=== PATIENT | female | born 1995 | race Caucasian/White ===

== ENCOUNTER 2017-11-22 11:56 | Emergency (ER) | payer OTHER ==
[~2017-11-22] VITALS: Ht 175.3 cm; Wt 79.0 kg
[~2017-11-22 11:56] MED LIST: AMOX875 PO; DICL75 PO; ROBA750T3 PO; ZOFR4TAB3 SL
[2017-11-22 12:05] VITALS: BP 124/71; PULSE 107; RESP 16; TEMP 99.1; O2SAT 98
[2017-11-22] MEDS ORDERED: KETOROLAC TROMETHAMINE 60 MG/2 ML (IM) VIAL IM ONE (13:00)
[2017-11-22] MEDS ORDERED: DIAZEPAM 5 MG TAB PO ONE (13:00)
[2017-11-22] MEDS ORDERED: ONDANSETRON ODT 4 MG TAB PO ONE (13:30)
[2017-11-22] MEDS ORDERED: oxyCODONE/ACETAMINOPHEN 5 MG/325 MG TAB PO ONE (14:15)
[2017-11-22] MEDS ORDERED: ROBA750T PO (14:45)
[2017-11-22] MEDS ORDERED: IBUP1TAB7 PO (14:45)
--- NOTE | 2017-11-22 14:45 | PD ---
HPI Chief Complaint: Back/ Neck Pain or Injury Time Seen by Provider: 12:55 Travel History International Travel<30 days: No Contact w/Intl Traveler<30days: No Traveled to known affect area: No History of Present Illness HPI This is a 21-year-old female here with left upper neck and back pain since 4 days. She denies injury or trauma. She reports this is similar to prior back strains and muscle spasms although this is more severe. She denies fever or chills. No chest pain or shortness of breath. No cough. No paresthesias or weakness of the extremities. No history of IV drug abuse. Symptom severity is moderate. Aggravated by palpation of the back and twisting motion. Slightly relieved with rest and heat. PFSH Past Medical History Medical History: Denies Significant Hx Diminished Hearing: No Musculoskeletal: Yes (hx of buldging discs) Immunizations Current: Yes Tetanus Vaccination: Unknown Influenza Vaccination: No ?: Not LMP: CURRENTLY Ovarian Cysts: Yes Social History Alcohol Use: No Tobacco Use: No Substance Use: No Allergies-Medications (Allergen,Severity, Reaction): Coded Allergies: No Known Allergies (Unverified Adverse Reaction, Unknown, 11/22/17) Reported Meds & Prescriptions Reported Meds & Active Scripts Active Review of Systems Except as stated in HPI: all other systems reviewed are Neg General / Constitutional: No: Fever Physical Exam Narrative GENERAL: Alert and well-appearing 21-year-old female. No distress. Patient sitting erect in the stretcher. SKIN: Warm and dry. No rash HEAD: Normocephalic. EYES: No scleral icterus. No injection or drainage. NECK: Supple, trachea midline. No cervical midline tenderness. CARDIOVASCULAR: Regular rate and rhythm without murmurs, gallops, or rubs. RESPIRATORY: Breath sounds equal bilaterally. No accessory muscle use. GASTROINTESTINAL: Abdomen soft, non-tender, nondistended. MUSCULOSKELETAL: No cyanosis, or edema. Normal strength and sensation in upper and lower extremities. BACK:+ Acute Tenderness to palpation to the left trapezius muscle. No midline spine tenderness. Without obvious deformity. No CVA tenderness. Data Data Last Documented VS Vital Signs Date Time Temp Pulse Resp B/P (MAP) Pulse Ox O2 Delivery O2 Flow Rate FiO2 11/22/17 12:05 99.1 107 16 124/71 (88) 98 Orders Orders Ketorolac Inj (Toradol Inj) (11/22/17 13:00) Diazepam (Valium) (11/22/17 13:00) Ondansetron Odt (Zofran Odt) (11/22/17 13:30) Oxycodone-Acetamin 5-325 Mg (Percocet (11/22/17 14:15) MDM Medical Decision Making Medical Screen Exam Complete: Yes Emergency Medical Condition: Yes Differential Diagnosis Musculoskeletal muscle strain of the back, very unlikely compression fracture, very unlikely spinal abscess Narrative Course This is a 21-year-old female with nontraumatic upper back pain for 4 days. The pain is reproducible to palpation of the soft tissue of the left upper back. She has no spinal tenderness. Vital signs are stable. She is well-appearing. This appears to be musculoskeletal in nature. Patient was given Toradol 60 mg IM and Valium 5 mg by mouth. On reexam patient had very little relief. She was then given Percocet 5//25 by mouth which provided moderate symptom relief. She is stable and ready for discharge. Diagnosis Primary Impression: Upper back strain Qualified Codes: S29.012A - Strain of muscle and tendon of back wall of thorax , initial encounter Referrals: Primary Care Physician Additional Instructions: Ibuprofen 800 mg every 6 hours as needed for pain. Robaxin 3 times a day as needed for muscle spasm. Use ice and/or heat for comfort. Avoid heavy lifting or strenuous activity. Return if he developed new or worsening symptoms. Scripts Methocarbamol (Robaxin) 750 Mg Tab 750 MG PO TID for Muscle Spasm, #12 TAB 0 Refills Prov: Hilary Izaguirre 11/22/17 Ibuprofen (Ibuprofen) 800 Mg Tab 800 MG PO Q6HR Y for PAIN, #40 TAB 0 Refills Prov: Hilary Izaguirre 11/22/17 Disposition: 01 DISCHARGE HOME Condition: Stable Hilary Izaguirre Nov 22, 2017 14:45
[2017-11-26] MEDS ORDERED: PERC5TAB12 PO ×2 (09:05→10:05)
== END 2017-11-22 15:03 | disposition home or self-care (01) ==
LOC: PHEFT 11:56
DX: S29.012A Strain of muscle and tendon of back wall of thorax, initial encounter (principal); M54.2 Cervicalgia; Z87.39 Personal history of other diseases of the musculoskeletal system and connective tissue; X58.XXXA Exposure to other specified factors, initial encounter
CPT/HCPCS: 96372; 99284; J1885

== ENCOUNTER 2017-12-05 06:35 | Observation (INO) | payer OTHER ==
[~2017-12-05] VITALS: Ht 175.3 cm; Wt 80.6 kg
[~2017-12-05 06:35] MED LIST changes: -AMOX875 PO; -DICL75 PO; +IBUP1TAB7 PO; +PERC5TAB12 PO; +ROBA750T PO; -ROBA750T3 PO; -ZOFR4TAB3 SL
[2017-12-05] MEDS ORDERED: THROMBIN (TOPICAL) 5,000 UNIT VIAL ONE (07:09)
[2017-12-05] MEDS ORDERED: ceFAZolin 2 GM PREMIX 50 ML ONE (07:09)
[2017-12-05] MEDS ORDERED: GELFOAM SIZE 100 ONE (07:09)
[2017-12-05] MEDS ORDERED: GENTAMICIN SULFATE 80 MG/2 ML VIAL ONE (07:10)
[2017-12-05] MEDS ORDERED: CHLORHEXIDINE GLUCONATE 2 % 1 PACK (2 CLOTHS) TOPICAL PRN (07:15)
[2017-12-05] MEDS ORDERED: METOPROLOL TARTRATE 25 MG TAB PO PRN (07:15)
[2017-12-05] MEDS ORDERED: POVIDONE IODINE 5% (ANTISEPSIS KIT) 4 APPLICATIONS EACH NARE PRN (07:15)
[2017-12-05] MEDS ORDERED: LACTATED RINGER'S 1000 ML IV PRN (07:15)
[2017-12-05] MEDS ORDERED: SODIUM CHLORID 0.9% 500 ML IV PRN (07:15)
[2017-12-05] MEDS ORDERED: SODIUM CHLOR 0.9% 1000 ML INJ 1,000 ML IV SCH (07:15)
[2017-12-05] MEDS ORDERED: VANCOMYCIN 1 GM/200 ML PREMIX ON-CALL IV SCH (07:15)
[2017-12-05] MEDS ORDERED: PROPOFOL 500 MG/50 ML INJ 50 ML ONE (09:48)
[2017-12-05] MEDS ORDERED: diphenhydrAMINE HCL 50 MG/ML VIAL ONE (11:50)
--- NOTE | 2017-12-05 11:51 | PD.OP ---
Operative Report Date of Surgery: Dec 05, 2017 Preoperative Diagnosis: C5-6 disk herniation Postoperative Diagnosis: C5-6 disk herniation Procedure: C5-6 anterior cervical discectomy and arthroplasty using Mobi C Anesthesia: general Surgeon: Maurice Bazan Pig Iron Loader(s): Sil Tapia Operation and Findings: INDICATIONS FOR THE PROCEDURE ms Aldridge is a 21 year-old who presented with intractable neck pain and clinical evidence of C6 cervical radiculopathy. She was found to have a large disc herniation at C5-6, causing significant mass effect on the spinal cord and nerve root. She had cord compression and evidence of myelopathy. She failed nonsurgical conservative treatment. An anterior cervical discectomy and arthroplasty were indicated. The [id number] details of the surgical procedure, indications, alternatives, risks and potential complications were fully discussed with the patient. The patient fully understood. All her questions were answered. No guarantees were given. She voiced requesting the procedure and signed informed consents. She was offered the alternative of delaying the procedure and continuing with nonsurgical management. DETAILS OF THE SURGICAL PROCEDURE SURGICAL APPROACH A skin incision was made along the middle cervical crease with a #10 blade. The dissection was carried out through the platysma exposing the sternocleidomastoid muscle. The cervical spine was approached following the fascial layers of the neck, just medial to the anterior border of the sternocleidomastoid and carotid sheath by a combination of sharp and dull dissection. The omohyoid muscle was identified and carefully dissected laterally and the deep cervical fascia was carefully opened. The longus colli muscles were retracted to each side of the midline. A marker was placed at the C5-6 disc space and a cross-table lateral x-ray performed with a C-arm. An AP xray was then obtained as well, and the midline of the disk space was defined. SURGICAL DECOMPRESSION In order to decompress the anterior surface of the spinal cord it was necessary to perform a microsurgical resection of the disk. At this point in the procedure the operating microscope was draped in the usual sterile fashion and brought to the field. The rest of the surgical procedure was performed using microdissection technique with the exception of the closure. Under the operative microscopic a self-retaining retractor was placed underneath the longus colli muscle. The annulus at C5-6 was incised with a #15 blade and microdiscectomy was then carefully carried out using angled curets and pituitary forceps. The patient had a large disk extrusion which was producing mass affect on the exiting nerve root. This was carefully dissected with a nerve hock and resected with a think foot plate 2 mm Kerrison under high magnification. The posterior longitudinal ligament was then elevated with an angled curet and incised with a 15 bladed knife. A careful resection of the posterior longitudinal ligament was carried out using a thin footplate 2 mm Kerrison. Extruded disk fragments causing mechanical compression were carefully dissected. The decompression was then carried out laterally, and a bilateral foraminotomy was performed with a 2 mm thin foot Kerrison. The epidural space was the systematically assessed with a nerve hook in search for disk fragments of scar tissue. An excellent decompression was achieved in both, the dural sac and bilateral exiting nerve roots. The incision was then irrigated with a large amount of antibiotic solution INTERBODY ARTHROPLASTY In order to avoid collapse of the disk space which would result in bilateral foraminal stenosis, and in order to maintain disk space height and function minimally development of adjacent level degeneration, it was necessary to place an interbody device. At this point of the procedure, gentle distraction was applied. The size of the interbody device was then assessed using a trial, and a cross table xray was done for confirmation of appropriate size and position of the device. Then the disk space was irrigated with antibiotic solution, and a 15mm by 6mm Mobi C artificial disk was carefully impacted into the disc space C5-6. An excellent position of the device was achieved. This was confirmed anatomically by feeling the space posterior to the implant and distance to the anterior surface of the dural sac. Radiological confirmation of the position was performed with a cross table AP and lateral X-ray views, performed with the C-arm. COMPLETION OF THE SURGICAL PROCEDURE Once that each interbody device was in an appropriate position, the distraction was discontinued. The position of the device as well as alignment of the spine were assessed anatomically by direct visualization, and radiologically by performing an AP and lateral X-ray of the cervical spine with the C-arm. The position of the implant was excellent. The incision was irrigated with several liters of antibiotic solution. Hemostasis was achieved with a bipolar. A 7 mm Niko-Heard drain was left in the prevertebral space and externalized through a separate stab incision. The incision was then closed in layers. 3-0 Vicryl with interrupted sutures was used to close the platysma and subcutaneous tissue. The skin was closed with 4- 0 running subcuticular Vicryl and Dermabond was applied to the skin. The drain was secured with a 3-0 nylon. At the end of the procedure the sponge, needle and instrument counts were all correct. The estimated blood loss was less than 50 cc. No blood transfusion was given. No intraoperative complications occurred. The patient received prophylactic antibiotics. The patient was then extubated and transferred to the recovery room in stable condition. Maurice Bazan MD Dec 05, 2017 11:51
[2017-12-05] MEDS ORDERED: DO NOT ADM ANY ANTICOAGULANT DRUGS PRN (11:57)
[2017-12-05] MEDS ORDERED: RESP: ALBUTEROL 2.5 MG/3 ML NEB (PRN) INH (12:00)
[2017-12-05] MEDS ORDERED: ONDANSETRON HCL 4 MG/2 ML VIAL IV PRN (12:00)
[2017-12-05] MEDS ORDERED: MORPHINE SULFATE 4 MG/ML INJ IV PUSH PRN (12:00)
[2017-12-05] MEDS ORDERED: GLYCOPYRROLATE 1 MG/5 ML SYRINGE IV PUSH ONE (12:00)
[2017-12-05] MEDS ORDERED: ACETAMINOPHEN 325 MG TAB PO PRN (12:00)
[2017-12-05] MEDS ORDERED: IBUPROFEN 800 MG TAB PO PRN (12:00)
[2017-12-05] MEDS ORDERED: MAGNESIUM HYDROXIDE SUSP 30 ML CUP PO PRN (12:00)
[2017-12-05] MEDS ORDERED: KETOROLAC TROMETHAMINE 30 MG/ML (IVP) VIAL IV PUSH ONE (12:00)
[2017-12-05] MEDS ORDERED: DEXTROSE 50% IN WATER 50 ML VIAL(D50) IV PUSH PRN (12:00)
[2017-12-05] MEDS ORDERED: cloNIDine HCL 0.1 MG TAB PO/NG PRN (12:00)
[2017-12-05] MEDS ORDERED: ACETAMINOPHEN/HYDROcodone 325 MG/10 MG TAB PO PRN ×2 (12:00)
[2017-12-05] MEDS ORDERED: PROPOFOL 200 MG/20 ML AMP IV ONE (12:00)
[2017-12-05] MEDS ORDERED: oxyCODONE/ACETAMINOPHEN 5 MG/325 MG TAB PO PRN (12:00)
[2017-12-05] MEDS ORDERED: LACTATED RINGER'S 1000 ML INJ 1,000 ML IV ONE (12:00)
[2017-12-05] MEDS ORDERED: MENTHOL LOZENGE BUCCAL PRN (12:00)
[2017-12-05] MEDS ORDERED: DEXAMETHASONE SOD PHOS 4 MG/ML VIAL IV ONE (12:00)
[2017-12-05] MEDS ORDERED: BISACODYL 10 MG SUPP RECTAL PRN (12:00)
[2017-12-05] MEDS ORDERED: GLUCAGON 1 MG/ML VIAL OTHER PRN (12:00)
[2017-12-05] MEDS ORDERED: ONDANSETRON HCL 4 MG/2 ML VIAL IV ONE (12:00)
[2017-12-05] MEDS ORDERED: NEOSTIGMINE 5 MG/5 ML SYRINGE IV PUSH ONE (12:00)
[2017-12-05] MEDS ORDERED: ROCURONIUM INJ 50 MG/5 ML SYRINGE IV PUSH ONE (12:00)
[2017-12-05] MEDS ORDERED: PHENYLEPH/NS 1000 MCG/10 ML SYR IV ONE (12:00)
[2017-12-05] MEDS: SODIUM CHLOR 0.9% 1000 ML INJ 1,000 ML IV SCH ×2 (12:05→22:15)
[2017-12-05] MEDS ORDERED: *ONDANSETRON 4 MG VIAL PERIprocedural Use ONLY ONE (12:13)
[2017-12-05] MEDS ORDERED: MIDAZOLAM HCL 2 MG/2 ML VIAL ONE (12:16)
[2017-12-05] MEDS ORDERED: *morphine SULFATE 10 MG/ML PERIprocedure ONLY ONE ×2 (12:21→14:24)
[2017-12-05] MEDS ORDERED: ACETAMINOPHEN 1000 MG/100 ML 100 ML IV ONE (12:56)
[2017-12-05] MEDS: DOCUSATE SODIUM 100 MG CAP PO SCH ×2 (13:00→21:08)
--- NOTE | 2017-12-05 13:39 | RADRPT ---
EXAM DATE/TIME: 12/05/2017 09:50 [facility] COMPARISON: No previous studies available for comparison. INDICATIONS : Herniated disk, stenosis. MEDICAL HISTORY : None. SURGICAL HISTORY : None. ENCOUNTER: Initial ACUITY: 1 day PAIN SCORE: Non-responsive. LOCATION: Cervical spine FINDINGS: Artificial disc is present at C5-C6. Alignment is anatomic. CONCLUSION: Alignment. Hernesto Dallas MD FACR on December 05, 2017 at 13:35 Board Certified Radiologist. This report was verified electronically.
[2017-12-05] MEDS: DEXAMETHASONE SOD PHOS 4 MG/ML VIAL IV PUSH SCH ×2 (14:00→21:08)
[2017-12-05 15:43] VITALS: BP 110/58; PULSE 99; RESP 17; TEMP 96.7; O2SAT 97
[2017-12-05] MEDS ORDERED: oxyCODONE/ACETAMINOPHEN 7.5 MG/325 MG TAB PO PRN (16:30)
[2017-12-05] MEDS: MORPHINE SULFATE 4 MG/ML INJ IV PUSH PRN ×2 (19:00→22:47)
[2017-12-05 20:00] VITALS: BP 124/69; PULSE 80; RESP 15; TEMP 97.7; O2SAT 99
[2017-12-05] MEDS: CYCLOBENZAPRINE HCL 10 MG TAB PO PRN (20:30)
[2017-12-05] MEDS: oxyCODONE/ACETAMINOPHEN 10 MG/325 MG TAB PO PRN (20:30)
[2017-12-05] MEDS ORDERED: CHLORHEXIDINE GLUCONATE 4% SOLN 120 ML BTL TOP SCH (21:00)
[2017-12-06] VITALS: BP 118/65; PULSE 70; RESP 15; TEMP 96.9; O2SAT 97
[2017-12-06] MEDS: oxyCODONE/ACETAMINOPHEN 10 MG/325 MG TAB PO PRN ×3 (00:50→14:07)
[2017-12-06] MEDS: MORPHINE SULFATE 4 MG/ML INJ IV PUSH PRN (02:00)
[2017-12-06] MEDS: DEXAMETHASONE SOD PHOS 4 MG/ML VIAL IV PUSH SCH ×3 (03:04→14:07)
[2017-12-06 04:00] VITALS: BP 106/52; PULSE 74; RESP 15; TEMP 97.2; O2SAT 98
[2017-12-06 08:00] VITALS: BP 112/62; PULSE 88; RESP 16; TEMP 97.3; O2SAT 98
[2017-12-06] MEDS ORDERED: PANTOPRAZOLE SOD 40 MG DELAYED RELEASE TAB PO SCH (09:00)
[2017-12-06] MEDS: SODIUM CHLOR 0.9% 1000 ML INJ 1,000 ML IV SCH ×2 (09:00→14:11)
[2017-12-06] MEDS ORDERED: PANTOPRAZOLE SODIUM 40 MG VIAL IVP PRN (09:00)
[2017-12-06] MEDS ORDERED: PERC5TAB12 PO (09:24)
[2017-12-06] MEDS ORDERED: CYCL10TA PO (09:25)
[2017-12-06] MEDS ORDERED: KETOROLAC TROMETHAMINE 60 MG/2 ML (IM) VIAL IM ONE (09:30)
[2017-12-06] MEDS ORDERED: CYCLOBENZAPRINE HCL 10 MG TAB PO PRN (09:30)
[2017-12-06] MEDS: CYCLOBENZAPRINE HCL 10 MG TAB PO PRN (09:32)
[2017-12-06] MEDS: DOCUSATE SODIUM 100 MG CAP PO SCH (09:32)
--- NOTE | 2017-12-06 11:13 | HHI.DS ---
Discharge Summary Admission Date Dec 05, 2017 at 11:49 Discharge Date: Dec 06, 2017 Admitting Diagnosis s/p ACD with mobi C placement (1) S/P cervical discectomy ICD Code: Z98.890 - Other specified postprocedural states Brief History Ms Aldridge is a 21 year-old who presented with intractable neck pain and clinical evidence of C6 cervical radiculopathy. She was found to have a large disc herniation at C5-6, causing significant mass effect on the spinal cord and nerve root. She had cord compression and evidence of myelopathy Significant Findings Laboratory Tests Test 12/05/17 07:50 Imaging Last Impressions Cervical Spine X-Ray 12/05/17 0000 Signed Impressions: Service Date/Time: Tuesday, December 05, 2017 09:50 - CONCLUSION: Alignment. Hernesto Dallas MD FACR PE at Discharge The patient is alert, awake and oriented to time, place and person. Speech is fluent. Cranial nerve examination: pupils to be equal, round and reactive to light. Extra-ocular movements are intact. Facial motor are normal and symmetrical. Neck is immobilized by Gary J collar Wound with clean, dry Optifoam dressing Motor: moving all major muscle groups of upper and lower extremities Gait: she is ambulating around the room Resp: clear, no wheezing Hospital Course Ms. Aldridge underwent a C5-6 anterior cervical discectomy and arthroplasty using Mobi C on Dec 05, 2017 for C5-6 disk herniation. Her surgery went well without complications. She is discharged home in stable conditions. Pt Condition on Discharge: Stable Discharge Disposition: Discharge Home Discharge Instructions DIET: Follow Instructions for: Soft Diet ADDITIONAL Diet Instructions: advance as tolerated ACTIVITIES You can perform: Weight Bearing As Suze ADDITIONAL Activity Instructio: Avoid strenuous activities, heavy lifting over 5 lbs, overhead activities, repetitive bending, twisting, pushing, pulling or any activities which might result in stress over the spine. Avoid situation that will put at risk for falls. Use assistive device as needed for walking. Wear cervical collar at all times, may remove only with meals. New Medications: Cyclobenzaprine (Flexeril) 10 Mg Tab 10 MG PO TID for Muscle Spasm, #90 TAB 0 Refills Continued Medications: Ibuprofen (Ibuprofen) 800 Mg Tab 800 MG PO Q6HR PRN for PAIN, #40 TAB 0 Refills Oxycodone-Acetaminophen (Percocet) 5-325 mg Tab 2 TAB PO Q8HR PRN for PAIN, #60 TAB 0 Refills (This prescription has been renewed) Viola Ramirez Dec 06, 2017 11:13
--- NOTE | 2017-12-06 11:13 | HHI.DCPOC ---
Discharge Care Plan Diagnosis: (1) S/P cervical discectomy Goals to Promote Your Health * To prevent worsening of your condition and complications * To maintain your health at the optimal level Directions to Meet Your Goals Take your medications as prescribed Follow your dietary instruction Follow activity as directed Keep your appointments as scheduled Take your immunizations and boosters as scheduled If your symptoms worsen call your PCP, if no PCP go to Urgent Care Center or Emergency Room Smoking is Dangerous to Your Health. Avoid second hand smoke Call the 24-hour hour crisis hotline for domestic abuse at Viola Ramirez Dec 06, 2017 11:13
== END 2017-12-06 14:48 | disposition home or self-care (01) ==
LOC: HSDC 06:35 → HSDI 11:49 → N06A 15:19
PROVIDERS: ADMIT Neurological Surgery; ATTEND Neurological Surgery
DX: M50.122 Cervical disc disorder at C5-C6 level with radiculopathy (principal); M50.022 Cervical disc disorder at C5-C6 level with myelopathy; J44.9 Chronic obstructive pulmonary disease, unspecified
CPT/HCPCS: 00600; 20936; 22551; 22845; 22856; 72040; 76000; 87641; 94150; 96372; 96374; 96375; 96376; 97162; C1889; G0378; G8987; G8988; J0131; J0690; J1100; J1200; J1580; J1885; J2250; J2270; J2370; J2405; J2710; J3010; J3370; J7030; J7120; L0150; L0172

== ENCOUNTER 2017-12-18 04:39 | Inpatient (IN) | payer OTHER ==
[2017-12-18] VITALS (10 sets, daily range): BP systolic 99–130; BP diastolic 56–84; PULSE 78–129; RESP 7–20; TEMP 96.4–101.7; O2SAT 97–100
[~2017-12-18] VITALS: Ht 175.3 cm; Wt 84.0 kg
[~2017-12-18 04:39] MED LIST changes: +CYCL10TA PO; -ROBA750T PO
[2017-12-18] MEDS ORDERED: SODIUM CHLOR 0.9% 1000 ML INJ 1,000 ML IV SCH (05:01)
--- NOTE | 2017-12-18 05:04 | PD ---
HPI Chief Complaint: Abdominal Pain Time Seen by Provider: 05:01 Travel History International Travel<30 days: No Contact w/Intl Traveler<30days: No Traveled to known affect area: No History of Present Illness HPI 22-year-old female presents to the emergency department via private transportation for complaint of severe right flank pain with shortness of breath. Patient states that 12/05/17 she underwent elective discectomy and has done well postoperatively. Patient takes no prescription medications. Patient does not smoke cigarettes. Patient states last evening after eating dinner she started noticing some periumbilical pain which moved to her right upper quadrant and now causes her severe right flank pain with shortness of breath. No report of chest pain or pleuritic chest pain. No report of hemoptysis. Patient is not taking any blood thinning agents. Patient rates pain as severe. PFSH Past Medical History Narrative Medical ovarian cysts; cervical discectomy; no tobacco use; nursing notes reviewed Arthritis: No Asthma: No Anxiety: No Depression: No Cancer: No Cardiovascular Problems: No Chemotherapy: No COPD: Yes Diabetes: No Diminished Hearing: No Endocrine: No Genitourinary: No Hepatitis: No Hiatal Hernia: No Immune Disorder: No Musculoskeletal: Yes (hx of buldging discs) Neurologic: Yes (L ARM NUMBNESS) Psychiatric: No Reproductive: No Respiratory: No Immunizations Current: Yes Radiation Therapy: No Sickle Cell Disease: No Thyroid Disease: No Ovarian Cysts: Yes Past Surgical History AICD: No Arteriovenous Shunt: No Gynecologic Surgery: Yes (OVARIAN CYSTS REMOVED) Insulin Pump: No Joint Replacement: No Pacemaker: No Social History Alcohol Use: No Tobacco Use: No Substance Use: No Allergies-Medications (Allergen,Severity, Reaction): Coded Allergies: No Known Allergies (Unverified Adverse Reaction, Unknown, 12/18/17) Reported Meds & Prescriptions Reported Meds & Active Scripts Active Flexeril (Cyclobenzaprine HCl) 10 Mg Tab 10 Mg PO TID Percocet (Oxycodone-Acetaminophen) 5-325 mg Tab 2 Tab PO Q8HR PRN Ibuprofen 800 Mg Tab 800 Mg PO Q6HR PRN Review of Systems Except as stated in HPI: all other systems reviewed are Neg General / Constitutional: Positive: Fever, No: Chills HENT: No: Sore Throat, Congestion Cardiovascular: No: Chest Pain or Discomfort Respiratory: Positive: Shortness of Breath, No: Cough, Pleuritic Pain Gastrointestinal: Positive: Vomiting, Abdominal Pain, No: Nausea, Diarrhea Genitourinary: Positive: Flank Pain, No: Dysuria, Vaginal Bleeding Musculoskeletal: No: Myalgias, Arthralgias Skin: No Rash Neurologic: No: Weakness Psychiatric: No: Anxiety Hematologic/Lymphatic: No: Lymph Node Enlargement Physical Exam Narrative GENERAL: Well-developed well-nourished female in no acute distress or respiratory distress in obvious discomfort SKIN: Warm and dry. HEAD: Normocephalic. EYES: No scleral icterus. No injection or drainage. NECK: Supple, trachea midline. No JVD or lymphadenopathy. CARDIOVASCULAR: Increased Regular rate and rhythm without murmurs, gallops, or rubs. RESPIRATORY: Breath sounds equal bilaterally. No accessory muscle use. GASTROINTESTINAL: Abdomen soft, mild epigastric and right upper quadrant tenderness to palpation without guarding or rebound, nondistended. MUSCULOSKELETAL: No cyanosis, or edema. BACK: Nontender without obvious deformity. Marked right CVA tenderness. Data Data Last Documented VS Vital Signs Date Time Temp Pulse Resp B/P (MAP) Pulse Ox O2 Delivery O2 Flow Rate FiO2 12/18/17 07:01 20 12/18/17 07:00 98 Room Air 12/18/17 06:59 98.4 97 Orders Orders Complete Blood Count With Diff (12/18/17 05:01) Comprehensive Metabolic Panel (12/18/17 05:01) Lipase (12/18/17 05:01) Prothrombin Time / Inr (Pt) (12/18/17 05:01) Act Partial Throm Time (Ptt) (12/18/17 05:01) Urinalysis - C+S If Indicated (12/18/17 05:01) Iv Access Insert/Monitor (12/18/17 05:01) Ecg Monitoring (12/18/17 05:01) Oximetry (12/18/17 05:01) Ondansetron Inj (Zofran Inj) (12/18/17 05:15) Sodium Chlor 0.9% 1000 Ml Inj (Ns 1000 M (12/18/17 05:01) Sodium Chloride 0.9% Flush (Ns Flush) (12/18/17 05:15) Chest, Single Ap (12/18/17 05:01) Morphine Inj (Morphine Inj) (12/18/17 05:15) Ed Urine Pregnancytest Poc (12/18/17 05:02) Blood Culture (12/18/17 05:04) Lactic Acid (12/18/17 05:04) Morphine Inj (Morphine Inj) (12/18/17 05:45) Acetaminophen (Tylenol) (12/18/17 05:45) Ct Pulmonary Angiogram (12/18/17 ) Ct Abd/Pel W Iv Contrast(Rout) (12/18/17 ) Hydromorphone Pf Inj (Dilaudid Pf Inj) (12/18/17 06:00) Urine Culture (12/18/17 05:30) Piperacil-Tazo 4.5 Gm Premix (Zosyn 4.5 (12/18/17 06:30) Us Abdomen Gallbladder (12/18/17 ) Labs Laboratory Tests Test 12/18/17 05:10 12/18/17 05:30 White Blood Count 11.0 TH/MM3 Red Blood Count 4.49 MIL/MM3 Hemoglobin 13.5 GM/DL Hematocrit 39.2 % Mean Corpuscular Volume 87.2 FL Mean Corpuscular Hemoglobin 30.0 PG Mean Corpuscular Hemoglobin Concent 34.4 % Red Cell Distribution Width 12.0 % Platelet Count 162 TH/MM3 Mean Platelet Volume 8.9 FL Neutrophils (%) (Auto) 83.6 % Lymphocytes (%) (Auto) 7.6 % Monocytes (%) (Auto) 8.3 % Eosinophils (%) (Auto) 0.2 % Basophils (%) (Auto) 0.3 % Neutrophils # (Auto) 9.3 TH/MM3 Lymphocytes # (Auto) 0.8 TH/MM3 Monocytes # (Auto) 0.9 TH/MM3 Eosinophils # (Auto) 0.0 TH/MM3 Basophils # (Auto) 0.0 TH/MM3 CBC Comment DIFF FINAL Differential Comment Prothrombin Time 10.5 SEC Prothromb Time International Ratio 1.0 RATIO Activated Partial Thromboplast Time 25.9 SEC Blood Urea Nitrogen 10 MG/DL Creatinine 0.72 MG/DL Random Glucose 107 MG/DL Total Protein 8.5 GM/DL Albumin 4.2 GM/DL Calcium Level 9.0 MG/DL Alkaline Phosphatase 109 U/L Aspartate Amino Transf (AST/SGOT) 16 U/L Alanine Aminotransferase (ALT/SGPT) 59 U/L Total Bilirubin 1.3 MG/DL Sodium Level 137 MEQ/L Potassium Level 3.5 MEQ/L Chloride Level 104 MEQ/L Carbon Dioxide Level 26.0 MEQ/L Anion Gap 7 MEQ/L Estimat Glomerular Filtration Rate 101 ML/MIN Lactic Acid Level 0.9 mmol/L Lipase 142 U/L Urine Color YELLOW Urine Turbidity MOD Urine pH 6.0 Urine Specific Protem 1.016 Urine Protein 30 mg/dL Urine Glucose (UA) NEG mg/dL Urine Ketones NEG mg/dL Urine Occult Blood LARGE Urine Nitrite POS Urine Bilirubin NEG Urine Leukocyte Esterase SMALL Urine RBC 15-19 /hpf Urine WBC 25-49 /hpf Urine WBC Clumps OCC Urine Squamous Epithelial Cells 0-5 /hpf Urine Bacteria OCC /hpf Urine Mucus OCC /lpf Microscopic Urinalysis Comment CULTURE INDICATED MDM Medical Decision Making Medical Screen Exam Complete: Yes Emergency Medical Condition: Yes Medical Record Reviewed: Yes Interpretation(s) poc hcg: negative ua: Positive nitrite positive white blood cells positive, white blood cells positive bacteria; culture indicated Last Impressions Chest X-Ray 12/18/17 0501 Signed Impressions: Service Date/Time: Monday, December 18, 2017 05:08 - CONCLUSION: No acute disease. Monroe Mckeon MD CBC & BMP Diagram 12/18/17 05:10 Total Protein 8.5 H, Albumin 4.2, Calcium Level 9.0, Alkaline Phosphatase 109, Aspartate Amino Transf (AST/SGOT) 16, Alanine Aminotransferase (ALT/SGPT) 59 H, Total Bilirubin 1.3 H Vital Signs Date Time Temp Pulse Resp B/P (MAP) Pulse Ox O2 Delivery O2 Flow Rate FiO2 12/18/17 05:40 18 12/18/17 05:13 100.5 128 20 125/83 (97) 97 12/18/17 05:13 20 12/18/17 04:46 99.4 129 14 130/84 (99) 97 Differential Diagnosis Cholecystitis, nephrolithiasis, PE, pneumonia Narrative Course IV access obtained; patient placed on ekg monitor tech with continuous pulse oximetry; specimens conductance of resulting; patient administered 1 L normal saline along with Zofran 4 mg IV and morphine sulfate 2 mg IV; CT study ordered Patient continues to complain of severe right-sided flank pain therefore additional morphine 4 mg administered IV patient states pain decreased from 910/ 10-8/10 patient given additional IV fluids total white cell count is within normal range with left shift Patient continues complain of pain Dilaudid 0.[address] pulmonary angiogram and CT abdomen and pelvis imaging studies ordered Urinalysis identified to have nitrites white blood cells clumped white blood cells and bacteria; culture indicated CT abdomen and pelvis reveals no acute intra-abdominal pelvic process 2.2 x 3 cm left ovarian cyst gallbladder is read as unremarkable however patient is reexamined and markedly tender right upper quadrant and right flank therefore ultrasound of the gallbladder will be ordered and ultrasound will be signed out to oncoming physician Dr. Scott for patient disposition patient is already received Zosyn 4.5 g IV piggyback regarding UTI/possible pyelonephritis. Mala Alejandro MD Dec 18, 2017 05:04
[2017-12-18] MEDS: SODIUM CHLORIDE 0.9% FLUSH 10 ML FLUSH IV FLUSH PRN (05:12)
[2017-12-18] MEDS ORDERED: ONDANSETRON HCL 4 MG/2 ML VIAL IVP ONE (05:15)
[2017-12-18] MEDS ORDERED: MORPHINE SULFATE 2 MG/ML INJ IV PUSH ONE ×2 (05:15→05:45)
--- NOTE | 2017-12-18 05:23 | RADRPT ---
EXAM DATE/TIME: 12/18/2017 05:08 [facility] COMPARISON: No previous studies available for comparison. INDICATIONS : Short of breath. MEDICAL HISTORY : None. SURGICAL HISTORY : Cervical spine. ENCOUNTER: Initial ACUITY: 2 days PAIN SCORE: 3/10 LOCATION: Bilateral lower chest FINDINGS: A single view of the chest demonstrates the lungs to be symmetrically aerated without evidence of mas s, infiltrate or effusion. The cardiomediastinal contours are unremarkable. Osseous structures are intact. CONCLUSION: No acute disease. Monroe Mckeon MD on December 18, 2017 at 5:21 Board Certified Radiologist. This report was verified electronically.
[2017-12-18 05:32] LABS: AUTOMATED NEUTROPHIL # 9.3 TH/MM3 (1.8-7.7); BASOPHIL % 0.3 % (0.0-2.0); EOSINOPHIL % 0.2 % (0.0-4.0); HEMATOCRIT 39.2 % (35.0-46.0); HEMOGLOBIN 13.5 GM/DL (11.6-15.3); LYMPH % 7.6 % (9.0-44.0); LYMPHOCYTE # 0.8 TH/MM3 (1.0-4.8); MEAN CELL VOLUME 87.2 FL (80.0-100.0); MEAN CORPUSCULAR HGB CONC 34.4 % (32.0-36.0); MEAN PLATELET VOLUME 8.9 FL (7.0-11.0); MONO % 8.3 % (0.0-8.0); MONOCYTE # 0.9 TH/MM3 (0-0.9); NEUT % 83.6 % (16.0-70.0); PLATELET COUNT 162 TH/MM3 (150-450); RED BLOOD COUNT 4.49 MIL/MM3 (4.00-5.30)
[2017-12-18 05:40] LABS: CHLORIDE 104 MEQ/L (98-107); SODIUM (NA) 137 MEQ/L (136-145)
[2017-12-18 05:41] LABS: BILIRUBIN, URINE NEG (NEG); BLOOD, URINE LARGE (NEG); GLUCOSE,URINE NEG (NEG); KETONE, URINE NEG (NEG); NITRITE,URINE POS (NEG); URINE LEUKOCYTE ESTERASE SMALL (NEG)
[2017-12-18 05:44] LABS: ALBUMIN 4.2 GM/DL (3.4-5.0); BLOOD UREA NITROGEN 10 MG/DL (7-18); GLUCOSE,RANDOM 107 MG/DL (74-106)
[2017-12-18] MEDS ORDERED: ACETAMINOPHEN 325 MG TAB PO ONE (05:45)
[2017-12-18 05:47] LABS: ALT (GPT) 59 U/L (10-53); AST (GOT) 16 U/L (15-37); CREATININE 0.72 MG/DL (0.50-1.00); GLOMERULAR FILTRATION RATE 101 ML/MIN (>89)
[2017-12-18 05:48] LABS: TOTAL BILIRUBIN ADULT 1.3 MG/DL (0.2-1.0); TOTAL PROTEIN 8.5 GM/DL (6.4-8.2)
[2017-12-18 05:50] LABS: ALKALINE PHOSPHATASE 109 U/L (45-117)
[2017-12-18] MEDS ORDERED: HYDROmorphone HCL PF 2 MG/ML VIAL IV PUSH ONE ×2 (06:00→08:00)
[2017-12-18 06:10] LABS: URINE COLOR YELLOW (YELLW/STRAW)
[2017-12-18 06:11] LABS: MUCUS URINE OCC /lpf (OCC); WHITE BLOOD CELL CLUMPS OCC
[2017-12-18 06:12] LABS: BACTERIA, URINE OCC /hpf; RBC, URINE 15-19 /hpf (0-3); SQUAMOUS EPITHELIAL CELL URINE 0-5 /hpf (0-5)
[2017-12-18 06:20] LABS: PROTHROMBIN TIME - PATIENT 10.5 SEC (9.8-11.6)
[2017-12-18] MEDS ORDERED: PIPERACIL-TAZO 4.5 GM PREMIX 100 ML IV ONE (06:30)
[2017-12-18] MEDS ORDERED: IOHEXOL 350 MG/ML 10 ML VIAL (for RAD DIAG) IVCONTRAST ONE (06:35)
--- NOTE | 2017-12-18 06:54 | RADRPT ---
EXAM DATE/TIME: 12/18/2017 06:14 [facility] COMPARISON: CHEST SINGLE AP, December 18, 2017, 5:08. INDICATIONS : Evaluate for embolism. Chest pain. IV CONTRAST: 100 cc Omnipaque 350 (iohexol) IV ; Cumulative dose for multiple exams. RADIATION DOSE: 11.00 CTDIvol (mGy) MEDICAL HISTORY : Chronic obstructive pulmonary disease. SURGICAL HISTORY : Discectomy, cervical. ENCOUNTER: Initial ACUITY: 1 day PAIN SCALE: 9/10 LOCATION: Bilateral chest TECHNIQUE: Volumetric scanning of the chest was performed using a pulmonary embolism protocol MIP images were re constructed. Using automated exposure control and adjustment of the mA and/or kV according to patien t size, radiation dose was kept as low as reasonably achievable to obtain optimal diagnostic quality images. DICOM format image data is available electronically for review and comparison. Follow-up recommendations for detected pulmonary nodules are based at a minimum on nodule size and pa tient risk factors according to Fleischner Society Guidelines. FINDINGS: PULMONARY ARTERIES: No filling defects are seen in the pulmonary arteries through the segmental level. LUNGS: There is no consolidation or pneumothorax . No concerning pulmonary nodule is visualized. PLEURAE: There is no pleural thickening or pleural effusion. MEDIASTINUM: There is good visualization of the great vessels of the middle mediastinum. No evidence of mediastin al or hilar adenopathy/mass. MUSCULOSKELETAL: Within normal limits for patient age. MISCELLANEOUS: The visualized upper abdominal organs demonstrate no acute abnormality. CONCLUSION: Negative exam with no evidence of pulmonary embolism. Monroe Mckeon MD on December 18, 2017 at 6:52 Board Certified Radiologist. This report was verified electronically.
--- NOTE | 2017-12-18 06:56 | RADRPT ---
EXAM DATE/TIME: 12/18/2017 06:14 [facility] COMPARISON: No previous studies available for comparison. INDICATIONS : Right upper quadrant pain. IV CONTRAST: 100 cc Omnipaque 350 (iohexol) IV ; Cumulative dose for multiple exams. ORAL CONTRAST: No oral contrast ingested. RADIATION DOSE: 12.72 CTDIvol (mGy) MEDICAL HISTORY : Chronic obstructive pulmonary disease. SURGICAL HISTORY : Fusion, cervical. ENCOUNTER: Initial ACUITY: 1 day PAIN SCALE: 9/10 LOCATION: Right upper quadrant TECHNIQUE: Volumetric scanning of the abdomen and pelvis was performed. Using automated exposure control and ad justment of the mA and/or kV according to patient size, radiation dose was kept as low as reasonably achievable to obtain optimal diagnostic quality images. DICOM format image data is available electro nically for review and comparison. FINDINGS: LOWER LUNGS: The visualized lower lungs are clear. LIVER: Homogeneous density without lesion. There is no dilation of the biliary tree. No calcified gallston es. SPLEEN: Normal size without lesion. PANCREAS: Within normal limits. KIDNEYS: Normal in size and shape. There is no mass, stone or hydronephrosis. ADRENAL GLANDS: Within normal limits. VASCULAR: There is no aortic aneurysm. BOWEL/MESENTERY: The stomach, small bowel, and colon demonstrate no acute abnormality. There is no free intraperitone al air or fluid. ABDOMINAL WALL: Within normal limits. RETROPERITONEUM: There is no lymphadenopathy. BLADDER: No wall thickening or mass. REPRODUCTIVE: There is a 3 x 2.2 cm left ovarian cyst. Uterus and adnexa are otherwise unremarkable with small amou nt of free fluid in the cul-de-sac. INGUINAL: There is no lymphadenopathy or hernia. MUSCULOSKELETAL: Within normal limits for patient age. CONCLUSION: 1. Unremarkable gallbladder. 2. Moderate-sized left ovarian cyst. 3. Bowel gas pattern is within normal limits. Monroe Mckeon MD on December 18, 2017 at 6:53 Board Certified Radiologist. This report was verified electronically.
[2017-12-18] MEDS ORDERED: KETOROLAC TROMETHAMINE 30 MG/ML (IVP) VIAL IV PUSH ONE (07:15)
[2017-12-18] MEDS ORDERED: HYDROmorphone HCL PF 1 MG/ML VIAL IV PUSH ONE (07:30)
--- NOTE | 2017-12-18 08:19 | RADRPT ---
EXAM DATE/TIME: 12/18/2017 07:54 [facility] COMPARISON: CT ABDOMEN & PELVIS W CONTRAST, December 18, 2017, 6:14. INDICATIONS : Right upper quadrant pain. MEDICAL HISTORY : Chronic obstructive pulmonary disease. SURGICAL HISTORY : Cervical fusion. ENCOUNTER: Initial ACUITY: 1 day PAIN SCORE: 7/10 LOCATION: Right upper quadrant MEASUREMENTS: LIVER: 15.4 cm length COMMON DUCT: 4 mm RIGHT KIDNEY: 11.5 x 4.6 x 5.8 cm FINDINGS: LIVER: Normal echotexture without focal lesion or ductal dilatation. COMMON DUCT: No intraluminal mass or stone visualized. GALLBLADDER: Contains no stones, demonstrates no wall thickening or pericholecystic fluid. PANCREAS: The visualized portions are within normal limits. RIGHT KIDNEY: No evidence of hydronephrosis, stone, or mass. CONCLUSION: 1. Unremarkable right upper quadrant ultrasound examination. Specifically, no cholelithiasis or sonog raphic evidence for cholecystitis. Caio Davies MD on December 18, 2017 at 8:16 Board Certified Radiologist. This report was verified electronically.
--- NOTE | 2017-12-18 09:03 | PD ---
Physical Exam Date Seen by Provider: Dec 18, 2017 Time Seen by Provider: 07:00 Narrative Patient initially seen by Dr. Alejandro, please see her notes for further details. Here because of right-sided abdominal pain, has UTI, awaiting ultrasound. CAT scan rule out PE was negative, CT of the abdomen was negative. Laboratory Tests Test 12/18/17 05:10 12/18/17 05:30 Neutrophils (%) (Auto) 83.6 % (16.0-70.0) Lymphocytes (%) (Auto) 7.6 % (9.0-44.0) Monocytes (%) (Auto) 8.3 % (0.0-8.0) Neutrophils # (Auto) 9.3 TH/MM3 (1.8-7.7) Lymphocytes # (Auto) 0.8 TH/MM3 (1.0-4.8) Random Glucose 107 MG/DL (74-106) Total Protein 8.5 GM/DL (6.4-8.2) Alanine Aminotransferase (ALT/SGPT) 59 U/L (10-53) Total Bilirubin 1.3 MG/DL (0.2-1.0) Urine Turbidity MOD (CLEAR) Urine Protein 30 mg/dL (NEG-TRACE) Urine Occult Blood LARGE (NEG) Urine Nitrite POS (NEG) Urine Leukocyte Esterase SMALL (NEG) Urine RBC 15-19 /hpf (0-3) Urine WBC 25-49 /hpf (0-5) Urine WBC Clumps OCC (NONE) Urine Bacteria OCC /hpf (NONE) Last 24 hours Impressions Chest X-Ray 12/18/17 0501 Signed Impressions: Service Date/Time: Monday, December 18, 2017 05:08 - CONCLUSION: No acute disease. Monroe Mckeon MD Gall Bladder Ultrasound 12/18/17 0000 Signed Impressions: Service Date/Time: Monday, December 18, 2017 07:54 - CONCLUSION: 1. Unremarkable right upper quadrant ultrasound examination. Specifically, no cholelithiasis or sonographic evidence for cholecystitis. Caio Davies MD CT Angiography 12/18/17 0000 Signed Impressions: Service Date/Time: Monday, December 18, 2017 06:14 - CONCLUSION: Negative exam with no evidence of pulmonary embolism. Monroe Mckeon MD Abdomen/Pelvis CT 12/18/17 0000 Signed Impressions: Service Date/Time: Monday, December 18, 2017 06:14 - CONCLUSION: 1. Unremarkable gallbladder. 2. Moderate-sized left ovarian cyst. 3. Bowel gas pattern is within normal limits. Monroe Mckeon MD Patient has had multiple doses of pain medications. IV antibiotics were given. Ultrasound did not show any signs of acute gallbladder processes. At this point, I have discussed findings with the patient and she is fairly anxious about going home, still in significant pain, and plan would be to admit her for pain control. Case has been discussed with Dr. Woods for admission as an observation. Data Data Last Documented VS Vital Signs Date Time Temp Pulse Resp B/P (MAP) Pulse Ox O2 Delivery O2 Flow Rate FiO2 12/18/17 08:37 16 12/18/17 07:00 98 Room Air 12/18/17 06:59 98.4 97 Orders Orders Complete Blood Count With Diff (12/18/17 05:01) Comprehensive Metabolic Panel (12/18/17 05:01) Lipase (12/18/17 05:01) Prothrombin Time / Inr (Pt) (12/18/17 05:01) Act Partial Throm Time (Ptt) (12/18/17 05:01) Urinalysis - C+S If Indicated (12/18/17 05:01) Iv Access Insert/Monitor (12/18/17 05:01) Ecg Monitoring (12/18/17 05:01) Oximetry (12/18/17 05:01) Ondansetron Inj (Zofran Inj) (12/18/17 05:15) Sodium Chlor 0.9% 1000 Ml Inj (Ns 1000 M (12/18/17 05:01) Sodium Chloride 0.9% Flush (Ns Flush) (12/18/17 05:15) Chest, Single Ap (12/18/17 05:01) Morphine Inj (Morphine Inj) (12/18/17 05:15) Ed Urine Pregnancytest Poc (12/18/17 05:02) Blood Culture (12/18/17 05:04) Lactic Acid (12/18/17 05:04) Morphine Inj (Morphine Inj) (12/18/17 05:45) Acetaminophen (Tylenol) (12/18/17 05:45) Ct Pulmonary Angiogram (12/18/17 ) Ct Abd/Pel W Iv Contrast(Rout) (12/18/17 ) Hydromorphone Pf Inj (Dilaudid Pf Inj) (12/18/17 06:00) Urine Culture (12/18/17 05:30) Piperacil-Tazo 4.5 Gm Premix (Zosyn 4.5 (12/18/17 06:30) Us Abdomen Gallbladder (12/18/17 ) Ketorolac Inj (Toradol Inj) (12/18/17 07:15) Iohexol 350 Inj (Omnipaque 350 Inj) (12/18/17 06:35) Hydromorphone Pf Inj (Dilaudid Pf Inj) (12/18/17 07:30) Hydromorphone Pf Inj (Dilaudid Pf Inj) (12/18/17 08:00) Admit Order (Ed Use Only) (12/18/17 09:00) Labs Laboratory Tests Test 12/18/17 05:10 12/18/17 05:30 White Blood Count 11.0 TH/MM3 Red Blood Count 4.49 MIL/MM3 Hemoglobin 13.5 GM/DL Hematocrit 39.2 % Mean Corpuscular Volume 87.2 FL Mean Corpuscular Hemoglobin 30.0 PG Mean Corpuscular Hemoglobin Concent 34.4 % Red Cell Distribution Width 12.0 % Platelet Count 162 TH/MM3 Mean Platelet Volume 8.9 FL Neutrophils (%) (Auto) 83.6 % Lymphocytes (%) (Auto) 7.6 % Monocytes (%) (Auto) 8.3 % Eosinophils (%) (Auto) 0.2 % Basophils (%) (Auto) 0.3 % Neutrophils # (Auto) 9.3 TH/MM3 Lymphocytes # (Auto) 0.8 TH/MM3 Monocytes # (Auto) 0.9 TH/MM3 Eosinophils # (Auto) 0.0 TH/MM3 Basophils # (Auto) 0.0 TH/MM3 CBC Comment DIFF FINAL Differential Comment Prothrombin Time 10.5 SEC Prothromb Time International Ratio 1.0 RATIO Activated Partial Thromboplast Time 25.9 SEC Blood Urea Nitrogen 10 MG/DL Creatinine 0.72 MG/DL Random Glucose 107 MG/DL Total Protein 8.5 GM/DL Albumin 4.2 GM/DL Calcium Level 9.0 MG/DL Alkaline Phosphatase 109 U/L Aspartate Amino Transf (AST/SGOT) 16 U/L Alanine Aminotransferase (ALT/SGPT) 59 U/L Total Bilirubin 1.3 MG/DL Sodium Level 137 MEQ/L Potassium Level 3.5 MEQ/L Chloride Level 104 MEQ/L Carbon Dioxide Level 26.0 MEQ/L Anion Gap 7 MEQ/L Estimat Glomerular Filtration Rate 101 ML/MIN Lactic Acid Level 0.9 mmol/L Lipase 142 U/L Urine Color YELLOW Urine Turbidity MOD Urine pH 6.0 Urine Specific [place] 1.016 Urine Protein 30 mg/dL Urine Glucose (UA) NEG mg/dL Urine Ketones NEG mg/dL Urine Occult Blood LARGE Urine Nitrite POS Urine Bilirubin NEG Urine Leukocyte Esterase SMALL Urine RBC 15-19 /hpf Urine WBC 25-49 /hpf Urine WBC Clumps OCC Urine Squamous Epithelial Cells 0-5 /hpf Urine Bacteria OCC /hpf Urine Mucus OCC /lpf Microscopic Urinalysis Comment CULTURE INDICATED MDM Medical Record Reviewed: Yes Supervised Visit with HUGO: No Diagnosis Primary Impression: Pyelonephritis Additional Impression: Abdominal pain Admitting Information Admitting Physician Requests: it Esau Estes MD Dec 18, 2017 09:03
[2017-12-18] MEDS ORDERED: diphenhydrAMINE HCL 50 MG/ML VIAL IV PUSH ONE (09:45)
--- NOTE | 2017-12-18 10:41 | HHI.HP ---
HPI Service [facility] Hospitalists Primary Care Physician Isidro Goss MD Admission Diagnosis Abdominal pain/pyelonephritis Chief Complaint: Right flank pain, abd pain, n/v Travel History International Travel<30 Days: No Contact w/Intl Traveler <30 Da: No Traveled to Known Affected Are: No History of Present Illness 22-year-old relatively healthy female presents to the emergency department via private transportation for complaint of severe right flank pain with shortness of breath due to pain. Patient states that 12/05/17 she underwent elective discectomy and has done well postoperatively. Patient takes no prescription medications regularly. Her last pain pill from the Cspine surgery was over a week ago and her postop pain has been well controlled. Patient does not smoke cigarettes. Patient states last evening after eating dinner she started noticing some periumbilical pain which moved to her right upper quadrant and now causes her severe right flank pain with shortness of breath. She was able to get to sleep around 11 pm despite the pain, but awoke with more pain at 1 AM. She tried to "tough it out", but had to come to ER due to pain around 4 AM. She vomited 3-4x at home before coming to ER. No vomiting her. No trauma. No unusual activities. No report of chest pain or pleuritic chest pain. No report of hemoptysis. Patient is not taking any blood thinning agents. Patient rates pain as severe 9/10 initially, now down to 5/10 on my exam. CXR, GB us, CTA chest, CT abd/pelvis all negative for acute findings and labs OK except u/a abnormalities. Pt reports low grade fever last PM and this AM as well. Review of Systems Constitutional: COMPLAINS OF: Fatigue, Fever, Chills Eyes: DENIES: Blurred vision, Diplopia, Eye inflammation, Eye pain, Vision loss , Photosensitivity, Double Vision Ears, nose, mouth, throat: DENIES: Tinnitus, Hearing loss, Vertigo, Nasal discharge, Oral lesions, Throat pain, Hoarseness, Ear Pain, Running Nose, Epistaxis, Sinus Pain, Toothache, Odynophagia Respiratory: COMPLAINS OF: Shortness of breath, DENIES: Apneas, Cough, Snoring , Wheezing, Hemoptysis, Sputum production Cardiovascular: DENIES: Chest pain, Palpitations, Syncope, Dyspnea on Exertion , PND, Lower Extremity Edema, Orthopnea, Claudication Gastrointestinal: COMPLAINS OF: Abdominal pain, Nausea, Vomiting, DENIES: Black stools, Bloody stools, BRB per rectum, Constipation, Diarrhea, GERD, Reflux, Difficulty Swallowing, Anorexia, See HPI Genitourinary: COMPLAINS OF: Urgency, DENIES: Abnormal vaginal bleeding, Dysmenorrhea, Dyspareunia, Sexual dysfunction, Urinary frequency, Urinary incontinence, Hematuria, Dysuria, Nocturia, Vaginal discharge Musculoskeletal: COMPLAINS OF: Neck pain, DENIES: Joint pain, Muscle aches, Stiffness, Joint Swelling, Back pain Integumentary: DENIES: Abnormal pigmentation, Pruritus, Rash, Nail changes, Breast masses, Breast skin changes, Nipple discharge Hematologic/lymphatic: DENIES: Bruising, Lymphadenopathy Immunologic/allergic: DENIES: Eczema, Urticaria Neurologic: DENIES: Abnormal gait, Headache, Localized weakness, Paresthesias, Seizures, Speech Problems, Tremor, Poor Balance Psychiatric: COMPLAINS OF: Anxiety Past Family Social History Past Medical History Cervical Disc bulge likely from fall in October 2017 Ovarian cysts Past Surgical History Cervical discectomy December 05, 2017 Ovarian cystectomy Implantable control device in upper extremity 2014 Reported Medications None regularly Allergies: Coded Allergies: No Known Allergies (Unverified Adverse Reaction, Unknown, 12/18/17) Family History Mother and father both had back surgery due to back problems Father had history of breast cancer Mother had history of endometriosis Social History Denies tobacco or illicit drug use Rarely drinks alcohol, approximately one drink per month Lives with her parents Has a boyfriend and is sexually active Previous she worked at [employer] but had to stop due to neck injury [place] [facility] [place] Physical Exam Vital Signs Vital Signs Date Time Temp Pulse Resp B/P (MAP) Pulse Ox O2 Delivery O2 Flow Rate FiO2 12/18/17 10:14 12/18/17 09:30 78 16 99/60 (73) 99 Room Air 12/18/17 08:37 16 12/18/17 08:37 16 12/18/17 08:30 82 16 102/63 (76) 98 Room Air 12/18/17 07:01 20 12/18/17 07:01 20 12/18/17 07:00 16 98 Room Air 12/18/17 06:59 98.4 97 16 106/68 (81) 98 Room Air 12/18/17 05:40 18 12/18/17 05:13 100.5 128 20 125/83 (97) 97 12/18/17 05:13 20 12/18/17 04:46 99.4 129 14 130/84 (99) 97 Physical Exam GENERAL: This is a well-nourished, well-developed patient, in mild distress due to right flank pain. SKIN: No rashes, ecchymoses or lesions. Cool and dry. No vesicles. HEAD: Atraumatic. Normocephalic. No temporal or scalp tenderness. EYES: Pupils equal round and reactive. Extraocular motions intact. No scleral icterus. No injection or drainage. ENT: Nose without bleeding, purulent drainage or septal hematoma. Airway patent. NECK: Trachea midline. No JVD or lymphadenopathy. Supple, nontender, no meningeal signs. CARDIOVASCULAR: Regular rate and rhythm without murmurs, gallops, or rubs. RESPIRATORY: Clear to auscultation. Breath sounds equal bilaterally. No wheezes , rales, or rhonchi. GASTROINTESTINAL: Abdomen soft, nondistended. Mild tenderness to palpation in right upper quadrant with positive Gerber sign. No hepato-splenomegaly, or palpable masses. Voluntary guarding right upper quadrant. No rebound. Bowel sounds normal. MUSCULOSKELETAL: Extremities without clubbing, cyanosis, or edema. CVA tenderness on the right noted. Slight para thoracic muscle spasm on the right. No calf tenderness. NEUROLOGICAL: Awake and alert. Cranial nerves II through XII intact. Motor and sensory grossly within normal limits. Five out of 5 muscle strength in all muscle groups. Normal speech. Laboratory Laboratory Tests Test 12/18/17 05:10 12/18/17 05:30 White Blood Count 11.0 Red Blood Count 4.49 Hemoglobin 13.5 Hematocrit 39.2 Mean Corpuscular Volume 87.2 Mean Corpuscular Hemoglobin 30.0 Mean Corpuscular Hemoglobin Concent 34.4 Red Cell Distribution Width 12.0 Platelet Count 162 Mean Platelet Volume 8.9 Neutrophils (%) (Auto) 83.6 Lymphocytes (%) (Auto) 7.6 Monocytes (%) (Auto) 8.3 Eosinophils (%) (Auto) 0.2 Basophils (%) (Auto) 0.3 Neutrophils # (Auto) 9.3 Lymphocytes # (Auto) 0.8 Monocytes # (Auto) 0.9 Eosinophils # (Auto) 0.0 Basophils # (Auto) 0.0 CBC Comment DIFF FINAL Differential Comment Prothrombin Time 10.5 Prothromb Time International Ratio 1.0 Activated Partial Thromboplast Time 25.9 Blood Urea Nitrogen 10 Creatinine 0.72 Random Glucose 107 Total Protein 8.5 Albumin 4.2 Calcium Level 9.0 Alkaline Phosphatase 109 Aspartate Amino Transf (AST/SGOT) 16 Alanine Aminotransferase (ALT/SGPT) 59 Total Bilirubin 1.3 Sodium Level 137 Potassium Level 3.5 Chloride Level 104 Carbon Dioxide Level 26.0 Anion Gap 7 Estimat Glomerular Filtration Rate 101 Lactic Acid Level 0.9 Lipase 142 Urine Color YELLOW Urine Turbidity MOD Urine pH 6.0 Urine Specific [place] 1.016 Urine Protein 30 Urine Glucose (UA) NEG Urine Ketones NEG Urine Occult Blood LARGE Urine Nitrite POS Urine Bilirubin NEG Urine Leukocyte Esterase SMALL Urine RBC 15-19 Urine WBC 25-49 Urine WBC Clumps OCC Urine Squamous Epithelial Cells 0-5 Urine Bacteria OCC Urine Mucus OCC Microscopic Urinalysis Comment CULTURE INDICATED Date/Time Source Procedure Growth Status 12/18/17 05:15 Blood Peripheral Aerobic Blood Culture Pending Received 12/18/17 05:15 Blood Peripheral Anaerobic Blood Culture Pending Received 12/18/17 05:30 Urine Clean Catch Urine Culture Pending Received Result Diagram: 12/18/17 0510 12/18/17 0510 Imaging Last 72 hours Impressions Chest X-Ray 12/18/17 0501 Signed Impressions: Service Date/Time: Monday, December 18, 2017 05:08 - CONCLUSION: No acute disease. Monroe Mckeon MD Gall Bladder Ultrasound 12/18/17 0000 Signed Impressions: Service Date/Time: Monday, December 18, 2017 07:54 - CONCLUSION: 1. Unremarkable right upper quadrant ultrasound examination. Specifically, no cholelithiasis or sonographic evidence for cholecystitis. Caio Davies MD CT Angiography 12/18/17 0000 Signed Impressions: Service Date/Time: Monday, December 18, 2017 06:14 - CONCLUSION: Negative exam with no evidence of pulmonary embolism. Monroe Mckeon MD Abdomen/Pelvis CT 12/18/17 0000 Signed Impressions: Service Date/Time: Monday, December 18, 2017 06:14 - CONCLUSION: 1. Unremarkable gallbladder. 2. Moderate-sized left ovarian cyst. 3. Bowel gas pattern is within normal limits. MD Bella Christine VTE Risk Assessment Caprini VTE Risk Assessment: No/Low Risk (score <= 1) Caprini Risk Assessment Model Point Value = 1 Point Value = 2 Point Value = 3 Point Value = 5 Age 41-60 Minor surgery BMI > 25 kg/m2 Swollen legs Varicose veins or History of unexplained or recurrent spontaneous Oral contraceptives or hormone replacement Sepsis (< 1 month) Serious lung disease, including pneumonia (< 1 month) Abnormal pulmonary function Acute myocardial infarction Congestive heart failure (< 1 month) History of inflammatory bowel disease Medical patient at bed rest Age 61-74 Arthroscopic surgery Major open surgery (> 45 min) Laparoscopic surgery (> 45 min) Malignancy Confined to bed (> 72 hours) Immobilizing plaster cast Central venous access Age >= 75 History of VTE Family history of VTE Factor V Leiden Prothrombin [id number] Lupus anticoagulant Anticardiolipin antibodies Elevated serum homocysteine Heparin-induced thrombocytopenia Other congenital or acquired thrombophilia Stroke (< 1 month) Elective arthroplasty Hip, pelvis, or leg fracture Acute spinal cord injury (< 1 month) Prophylaxis Regimen Total Risk Factor Score Risk Level Prophylaxis Regimen 0-1 Low Early ambulation 2 Moderate Order ONE of the following: *Sequential Compression Device (SCD) *Heparin 5000 units SQ BID 3-4 Higher Order ONE of the following medications: *Heparin 5000 units SQ TID *Enoxaparin/Lovenox 40 mg SQ daily (WT < 150 kg, CrCl > 30 mL/min) *Enoxaparin/Lovenox 30 mg SQ daily (WT < 150 kg, CrCl > 10-29 mL/min) *Enoxaparin/Lovenox 30 mg SQ BID (WT < 150 kg, CrCl > 30 mL/min) AND/OR *Sequential Compression Device (SCD) 5 or more Highest Order ONE of the following medications: *Heparin 5000 units SQ TID (Preferred with Epidurals) *Enoxaparin/Lovenox 40 mg SQ daily (WT < 150 kg, CrCl > 30 mL/min) *Enoxaparin/Lovenox 30 mg SQ daily (WT < 150 kg, CrCl > 10-29 mL/min) *Enoxaparin/Lovenox 30 mg SQ BID (WT < 150 kg, CrCl > 30 mL/min) AND *Sequential Compression Device (SCD) Assessment and Plan Problem List: (1) Abdominal pain ICD Codes: R10.9 - Unspecified abdominal pain Status: Acute Plan: Possibly early pyelonephritis. We'll admit for IV fluids, antibiotics, pain control and IV antibiotics. Hopefully discharge home tomorrow. (2) Pyelonephritis ICD Codes: N12 - Tubulo-interstitial nephritis, not specified as acute or chronic Status: Acute Plan: CT unremarkable but clinical suspicion of pyelo given her right flank pain, abnormal urine and nausea/vomiting. We'll treat as noted above. I do not strongly suspect drug seeking behavior in this patient. Code Status full Discussed Condition With Patient and ER provider Problem Qualifiers (1) Abdominal pain: Qualified Codes: R10.11 - Right upper quadrant pain Uday Woods MD PhD Dec 18, 2017 10:41
[2017-12-18] MEDS ORDERED: MORPHINE SULFATE 4 MG/ML INJ IV PUSH PRN (10:45)
[2017-12-18] MEDS ORDERED: KETOROLAC TROMETHAMINE 30 MG/ML (IVP) VIAL IV PUSH PRN (10:45)
[2017-12-18] MEDS ORDERED: LORazepam 2 MG/ML VIAL IV PUSH ONE (11:00)
[2017-12-18] MEDS ORDERED: NS + KCL 20 MEQ INJ 1,000 ML IV SCH (11:00)
[2017-12-18] MEDS: cefTRIAXone INJ 1,000 MG in SODIUM CHLORIDE 0.9% INJ 100 ML IV SCH (11:08)
[2017-12-18] MEDS: POTASSIUM CHLORIDE INJ 20 MEQ in SODIUM CHLOR 0.9% 1000 ML INJ 1,000 ML IV SCH ×2 (12:03→21:13)
[2017-12-18] MEDS: ACETAMINOPHEN 500 MG CPLT PO PRN (16:30)
[2017-12-18] MEDS ORDERED: HYDROmorphone HCL PF 1 MG/ML VIAL IV PUSH PRN (18:00)
[2017-12-18] MEDS: PANTOPRAZOLE SODIUM 40 MG VIAL IV PUSH SCH (18:42)
[2017-12-18] MEDS: LORazepam 2 MG/ML VIAL IV PUSH PRN (18:46)
[2017-12-18] MEDS: HYDROmorphone HCL PF 2 MG/ML VIAL IV PUSH PRN (18:48)
--- NOTE | 2017-12-18 20:37 | HHI.PR ---
Addendum to Inpatient Note Addendum Reason: Additional Documentation Additional Information Came by to see the patient as she has had somewhat eventful afternoon. Per her nurse, Zandra she has had several episodes of somewhat seemingly uncontrollable pain with screaming and complaining of cramps in her lower abdomen and right flank area. Did have an elevated fever of 101.7 this afternoon was somewhat tachycardic at that time. Repeat vitals around 8:00 tonight revealed an afebrile patient with a pulse of 109 and a normal blood pressure. Reportedly the pain was so bad at one point the patient's mother was given a take her back downstairs to the ER to be evaluated. We changed her pain medications and gave Ativan which seemed to help alleviate her symptoms. It is noted that the nurse was able to calm her by telling her that I was going to come by and see her again tonight which I have done. Patient describes the pain as sharp and radiating at times right flank and in the infraumbilical area seems to be fleeting at times and other times would last longer and be and 9 out of 10. She reports she is a 5 out of 10 pain presently on my exam and she appears to be resting quite comfortably. Her mother and boyfriend are in the room during my interview and current exam. They're appreciative for my evaluation and explanation of what I believe to be going on with her. On my exam currently she is resting quietly able to answer questions and is cooperating. She is alert and oriented and apparent distress. Cardiovascular: regular rate and rhythm with no appreciated murmurs. Pulmonary: clear to auscultation Abdomen: soft, nondistended, tender to palpation in the epigastrium in the umbilicus area. No guarding or rebound. Bowel sounds slightly diminished. She has some tenderness to palpation in the right flank and again some Thoracic muscle spasm along the longissimus musculature. Plan: Continue current medication including the Ativan and pain medication. If she has abdominal pain tomorrow that is uncontrolled, we'll have GI see her at that time. Currently he is still requiring IV pain medications as she reportedly gets quite nauseated at times. Uday Woods MD PhD Dec 18, 2017 20:37
[2017-12-18] MEDS ORDERED: TEMAZEPAM 15 MG CAP PO ONE (21:00)
[2017-12-19] VITALS: BP 118/67; PULSE 117; RESP 18; TEMP 100.4; O2SAT 98
[2017-12-19] MEDS ORDERED: MAGNESIUM HYDROXIDE SUSP 30 ML CUP PO ONE
[2017-12-19 05:19] VITALS: TEMP 100.7
[2017-12-19] MEDS: ACETAMINOPHEN 500 MG CPLT PO PRN ×2 (05:23→10:51)
[2017-12-19 05:45] LABS: CHLORIDE 107 MEQ/L (98-107); SODIUM (NA) 139 MEQ/L (136-145)
[2017-12-19 06:17] LABS: ALBUMIN 3.1 GM/DL (3.4-5.0); ALKALINE PHOSPHATASE 84 U/L (45-117); ALT (GPT) 37 U/L (10-53); AST (GOT) 14 U/L (15-37); BLOOD UREA NITROGEN 6 MG/DL (7-18); CREATININE 0.53 MG/DL (0.50-1.00); GLOMERULAR FILTRATION RATE 144 ML/MIN (>89); GLUCOSE,RANDOM 93 MG/DL (74-106); TOTAL BILIRUBIN ADULT 1.5 MG/DL (0.2-1.0); TOTAL PROTEIN 6.7 GM/DL (6.4-8.2)
--- NOTE | 2017-12-19 06:42 | HHI.PR ---
Subjective Remarks Patient reports she slept well overnight with the Restoril and did not require any more IV pain medication overnight. Reports she still has pain in her flank on the right but her abdominal pain is improved. She's been up walking to the restroom several times for urination. She reports that she has noted some blood and blood clots in her urine starting late last night. Objective Vitals Vital Signs Date Time Temp Pulse Resp B/P (MAP) Pulse Ox O2 Delivery O2 Flow Rate FiO2 12/19/17 05:19 100.7 12/19/17 00:00 100.4 117 18 118/67 (84) 98 12/18/17 20:00 97.9 109 18 110/57 (74) 98 12/18/17 16:00 101.7 128 16 105/56 (72) 99 12/18/17 13:05 97.1 12/18/17 10:43 96.4 90 20 108/58 (75) 100 12/18/17 10:14 12/18/17 09:30 78 16 99/60 (73) 99 Room Air 12/18/17 08:37 16 12/18/17 08:37 16 12/18/17 08:30 82 16 102/63 (76) 98 Room Air 12/18/17 07:01 20 12/18/17 07:01 20 12/18/17 07:00 16 98 Room Air 12/18/17 06:59 98.4 97 16 106/68 (81) 98 Room Air GENERAL: Sleeping, arouses to voice, alert and oriented. Cooperative. Appears much more comfortable this morning than yesterday. SKIN: Moist, slightly clammy. No obvious rash. HEAD: Normocephalic. EYES: No scleral icterus. No injection or drainage. NECK: Supple, trachea midline. No JVD or lymphadenopathy. CARDIOVASCULAR: Regular rate and rhythm without murmurs, gallops, or rubs. RESPIRATORY: Breath sounds equal bilaterally. No accessory muscle use. GASTROINTESTINAL: Abdomen soft, nondistended. Mild tenderness in epigastrium but much improved from yesterday. Bowel sounds normal to slightly hypo-active. MUSCULOSKELETAL: No cyanosis, or edema. BACK: Nontender without obvious deformity. Right-sided CVA tenderness present but improving. Result Diagram: 12/18/17 0510 12/19/17 0505 Imaging Last 72 hours Impressions Chest X-Ray 12/18/17 0501 Signed Impressions: Service Date/Time: Monday, December 18, 2017 05:08 - CONCLUSION: No acute disease. Monroe Mckeon MD Gall Bladder Ultrasound 12/18/17 0000 Signed Impressions: Service Date/Time: Monday, December 18, 2017 07:54 - CONCLUSION: 1. Unremarkable right upper quadrant ultrasound examination. Specifically, no cholelithiasis or sonographic evidence for cholecystitis. Caio Davies MD CT Angiography 12/18/17 0000 Signed Impressions: Service Date/Time: Monday, December 18, 2017 06:14 - CONCLUSION: Negative exam with no evidence of pulmonary embolism. Monroe Mckeon MD Abdomen/Pelvis CT 12/18/17 0000 Signed Impressions: Service Date/Time: Monday, December 18, 2017 06:14 - CONCLUSION: 1. Unremarkable gallbladder. 2. Moderate-sized left ovarian cyst. 3. Bowel gas pattern is within normal limits. Monroe Mckeon MD Urinary Catheter: No Vascular Central Line Catheter: No A/P Problem List: (1) Abdominal pain ICD Codes: R10.9 - Unspecified abdominal pain Status: Acute Plan: Possibly early pyelonephritis. Continue IV fluids, antibiotics, pain control and IV antibiotics. Convert to oral pain medication as tolerated. She is still having some fevers but not as high as yesterday afternoon. We'll continue to follow fever curve. Hopefully discharge home later today depending on her capacity to tolerate oral intake, level of pain control and her fever curve. (2) Pyelonephritis ICD Codes: N12 - Tubulo-interstitial nephritis, not specified as acute or chronic Status: Acute Plan: CT unremarkable but clinical suspicion of pyelo given her right flank pain, abnormal urine and nausea/vomiting. We'll treat as noted above. I do not strongly suspect drug seeking behavior in this patient. Hematuria noted by patient last night and this morning. Likely associated with the inflammatory/infectious process in the kidney. Problem Qualifiers (1) Abdominal pain: Qualified Codes: R10.11 - Right upper quadrant pain Uday Woods MD PhD Dec 19, 2017 06:42
[2017-12-19] MEDS: POTASSIUM CHLORIDE INJ 20 MEQ in SODIUM CHLOR 0.9% 1000 ML INJ 1,000 ML IV SCH (08:12)
[2017-12-19] MEDS: DOCUSATE SODIUM 100 MG CAP PO SCH ×2 (08:25→20:21)
[2017-12-19] MEDS: ACETAMINOPHEN/HYDROcodone 325 MG/7.5 MG TAB PO PRN ×2 (08:26→18:09)
[2017-12-19 08:45] LABS: BILIRUBIN, URINE NEG (NEG); BLOOD, URINE LARGE (NEG); GLUCOSE,URINE NEG (NEG); KETONE, URINE 40 mg/dL (NEG); NITRITE,URINE NEG (NEG); URINE LEUKOCYTE ESTERASE NEG (NEG)
[2017-12-19 09:14] VITALS: BP 135/61; PULSE 97; RESP 14; TEMP 97.8; O2SAT 99
[2017-12-19 09:37] LABS: URINE COLOR YELLOW (YELLW/STRAW)
[2017-12-19 09:40] LABS: RBC, URINE 100-200 /hpf (0-3)
[2017-12-19] MEDS: cefTRIAXone INJ 1,000 MG in SODIUM CHLORIDE 0.9% INJ 100 ML IV SCH (10:50)
[2017-12-19] MEDS ORDERED: LEVOFLOXACIN 500 MG TAB PO SCH (11:00)
[2017-12-19] MEDS: ONDANSETRON HCL 4 MG/2 ML VIAL IV PUSH PRN (12:34)
[2017-12-19 12:49] VITALS: BP 114/67; PULSE 113; RESP 14; TEMP 99; O2SAT 100
[2017-12-19] MEDS: HYDROmorphone HCL PF 2 MG/ML VIAL IV PUSH PRN ×2 (13:01→20:18)
[2017-12-19] MEDS: PANTOPRAZOLE SODIUM 40 MG VIAL IV PUSH SCH (16:15)
[2017-12-19] MEDS: LORazepam 2 MG/ML VIAL IV PUSH PRN ×2 (16:15→20:17)
[2017-12-19 17:15] VITALS: BP 114/57; PULSE 111; RESP 18; TEMP 99.8; O2SAT 100
[2017-12-19 20:00] VITALS: BP 115/58; PULSE 104; RESP 18; TEMP 97.7; O2SAT 98
[2017-12-19] MEDS: NS + KCL 20 MEQ INJ 1,000 ML IV SCH (20:21)
[2017-12-20] VITALS: BP 92/53; PULSE 90; RESP 18; TEMP 96.8; O2SAT 97
[2017-12-20 04:00] VITALS: BP 100/60; PULSE 82; RESP 17; TEMP 96.2; O2SAT 99
[2017-12-20] MEDS: NS + KCL 20 MEQ INJ 1,000 ML IV SCH ×2 (06:15→16:44)
[2017-12-20 08:00] VITALS: BP 110/67; PULSE 93; RESP 16; TEMP 97.8; O2SAT 98
--- NOTE | 2017-12-20 08:04 | EKG ---
Date Performed: 12/19/2017 Time Performed: 14:20:01 PTAGE: 22 years EKG: SINUS TACHYCARDIA ABNORMAL RHYTHM ECG NO PREVIOUS TRACING DOCTOR: Jodie Prado Interpretating Date/Time 12/20/2017 08:02:00
[2017-12-20] MEDS: HYDROmorphone HCL PF 2 MG/ML VIAL IV PUSH PRN ×4 (08:15→20:56)
[2017-12-20] MEDS: LORazepam 2 MG/ML VIAL IV PUSH PRN ×4 (08:15→20:54)
[2017-12-20] MEDS: DOCUSATE SODIUM 100 MG CAP PO SCH ×2 (08:16→21:01)
--- NOTE | 2017-12-20 09:24 | HHI.PR ---
Subjective Remarks Pt still having hematuria with clots Her right sided abdominal pain and flank pain increased this morning and she took the IV Dilaudid with some relief. Her last fever was at 17:15 on 12/19 and was 99.8 She has not had anything to eat or drink so far this morning. Objective Vitals Vital Signs Date Time Temp Pulse Resp B/P (MAP) Pulse Ox O2 Delivery O2 Flow Rate FiO2 12/20/17 08:00 97.8 93 16 110/67 (81) 98 12/20/17 04:00 96.2 82 17 100/60 (73) 99 12/20/17 00:00 96.8 90 18 92/53 (66) 97 12/19/17 20:00 97.7 104 18 115/58 (77) 98 12/19/17 17:15 99.8 111 18 114/57 (76) 100 12/19/17 12:49 99.0 113 14 114/67 (83) 100 12/19/17 09:14 97.8 97 14 135/61 (85) 99 12/20/17 12/20/17 12/21/17 15:00 23:00 07:00 # Voids 0 Result Diagram: 12/18/17 0510 12/19/17 0505 Other Results Laboratory Tests Test 12/19/17 05:05 12/19/17 07:40 12/19/17 08:33 12/19/17 18:27 Blood Urea Nitrogen 6 MG/DL Creatinine 0.53 MG/DL Random Glucose 93 MG/DL Total Protein 6.7 GM/DL Albumin 3.1 GM/DL Calcium Level 8.0 MG/DL Alkaline Phosphatase 84 U/L Aspartate Amino Transf (AST/SGOT) 14 U/L Alanine Aminotransferase (ALT/SGPT) 37 U/L Total Bilirubin 1.5 MG/DL Sodium Level 139 MEQ/L Potassium Level 3.7 MEQ/L Chloride Level 107 MEQ/L Carbon Dioxide Level 24.0 MEQ/L Anion Gap 8 MEQ/L Estimat Glomerular Filtration Rate 144 ML/MIN Total Creatine Kinase 30 U/L Urine Collection Type CLEAN CATCH Urine Color YELLOW Urine Turbidity SLIGHT Urine pH 6.0 Urine Specific [place] 1.013 Urine Protein NEG mg/dL Urine Glucose (UA) NEG mg/dL Urine Ketones 40 mg/dL Urine Occult Blood LARGE Urine Nitrite NEG Urine Bilirubin NEG Urine Leukocyte Esterase NEG Urine RBC 100-200 /hpf Urine WBC 3-5 /hpf Urine Squamous Epithelial Cells 6-8 /hpf Microscopic Urinalysis Comment CULT NOT INDICATED Urine Collection Time 07:40 Lactic Acid Level 0.7 mmol/L Chlamydia trachomatis DNA (PCR) NOT DETECTED Neisseria gonorrhoeae DNA (PCR) NOT DETECTED Imaging Last 72 hours Impressions Chest X-Ray 12/18/17 0501 Signed Impressions: Service Date/Time: Monday, December 18, 2017 05:08 - CONCLUSION: No acute disease. Monroe Mckeon MD Gall Bladder Ultrasound 12/18/17 0000 Signed Impressions: Service Date/Time: Monday, December 18, 2017 07:54 - CONCLUSION: 1. Unremarkable right upper quadrant ultrasound examination. Specifically, no cholelithiasis or sonographic evidence for cholecystitis. Caio Davise MD CT Angiography 12/18/17 0000 Signed Impressions: Service Date/Time: Monday, December 18, 2017 06:14 - CONCLUSION: Negative exam with no evidence of pulmonary embolism. Monroe Mckeon MD Abdomen/Pelvis CT 12/18/17 0000 Signed Impressions: Service Date/Time: Monday, December 18, 2017 06:14 - CONCLUSION: 1. Unremarkable gallbladder. 2. Moderate-sized left ovarian cyst. 3. Bowel gas pattern is within normal limits. Monroe Mckeon MD Objective Remarks General: NAD, AAOx3 Neck: surgical incision on the anterior right side of the neck is c/d/i Chest: CTA Cardiac: Regular Abd: +BS, soft ND, right sided abdominal and flank tenderness with voluntary guarding Ext: No edema A/P Problem List: (1) Abdominal pain ICD Codes: R10.9 - Unspecified abdominal pain Status: Acute Plan: Right sided Abd pain/flank pain Hematuria Possibly early pyelonephritis vs. radiolucent nephrolithiasis vs. other - Pt is a 22 y/o female who presented to [place] [facility] [place] 12[place]18[place]17 with complaints of right sided abd/flank pain and fever. - GB US (12/18/17) --> Unremarkable right upper quadrant ultrasound examination. Specifically, no cholelithiasis or sonographic evidence for cholecystitis. - CT Abd/pelvis (12/18/17) --> Unremarkable gallbladder. Moderate-sized left ovarian cyst. Bowel gas pattern is within normal limits. - UA at admission was abnormal, urine culture growing gram negative rods - Pt has been given IV fluids, pain control and IV antibiotics. - Pt developed hematuria on 12/19 and continued N/V, fever and flank pain. There was concern for possible radiolucent stone presence. The case was discussed between Dr. Woods and Dr. Tomlinson and it was decided to transfer the pt to [facility] for possible cystoureteroscopy with possible stone retrieval. - Renal US was performed this morning and is pending. - Pts last fever was on 12/19 @ 17:15 - Repeat UA on 12/19 noted large amount of blood. - Cont. IVF - Pain control PRN - Supportive care - Pt has not had anything to eat or drink today, and instructed not to eat or drink until she is seen by Urology today. (2) Pyelonephritis ICD Codes: N12 - Tubulo-interstitial nephritis, not specified as acute or chronic Status: Acute Assessment and Plan Patient examined. Assessment and plan formulated with Callie Luther PA-C. I agree with the above. uti. ?blood clots or stone in right ureter. persistent pain. discussed with dr Tomlinson. plan for cysto. rpg tomorrow. Problem Qualifiers (1) Abdominal pain: Qualified Codes: R10.11 - Right upper quadrant pain Callie Luther Dec 20, 2017 09:23 Ludwig Swan MD Dec 20, 2017 12:37
--- NOTE | 2017-12-20 09:28 | RADRPT ---
EXAM DATE/TIME: 12/20/2017 08:46 [place] COMPARISON: US ABDOMEN - GALLBLADDER, December 18, 2017, 7:54. INDICATIONS : Right flank pain, hematuria. MEDICAL HISTORY : Chronic obstructive pulmonary disease. SURGICAL HISTORY : Cervical fusion. ENCOUNTER: Subsequent ACUITY: 3 days PAIN SCORE: 3/10 LOCATION: Bilateral flank MEASUREMENTS: RIGHT KIDNEY: 10.9 x 4.5 x 5.6 cm LEFT KIDNEY: 11.7 x 4.1 x 4.7 cm FINDINGS: RIGHT KIDNEY: Renal cortex is normal in thickness and echotexture. No hydronephrosis, stone, or mass. LEFT KIDNEY: Renal cortex is normal in thickness and echotexture. No hydronephrosis, stone, or mass. BLADDER: Within normal limits given the degree of distension. CONCLUSION: 1. The examination is within normal limits. Que Dallas MD on December 20, 2017 at 9:25 Board Certified Radiologist. This report was verified electronically.
[2017-12-20] MEDS: cefTRIAXone INJ 1,000 MG in SODIUM CHLORIDE 0.9% INJ 100 ML IV SCH (10:48)
--- NOTE | 2017-12-20 11:56 | PD.CONS ---
[facility] Service Urology Consult Requested By Dr. Woods Reason for Consult Right flank pain with hematuria Primary Care Physician Isidro Goss MD Diagnosis: (1) Abdominal pain ICD Code: R10.9 - Unspecified abdominal pain (2) Pyelonephritis ICD Code: N12 - Tubulo-interstitial nephritis, not specified as acute or chronic History of Present Illness 22-year-old female who recently underwent elective discectomy involving the cervical spine on December 05 of this year without complications. She presented to the emergency room on December 18 with acute onset right flank pain. Workup included a CT scan of the abdomen and pelvis which demonstrated dilation of the right ureter but no definitive stone seen. She was admitted for analgesic support and started on antibiotic therapy. Since being admitted to the hospital she developed gross hematuria with clots. She was transferred from [facility] and a urology consult was placed. At the time of consultation, the patient continues to experience intermittent right flank pain and hematuria. She denies a prior urologic history of calculi or any other abnormalities. Review of Systems Constitutional: DENIES: Fever, Chills Cardiovascular: DENIES: Chest pain Gastrointestinal: COMPLAINS OF: Abdominal pain (Right lower quadrant) Genitourinary: COMPLAINS OF: Hematuria Except as stated in HPI: all other systems reviewed are Neg Past Family Social History Past Medical History Bulging cervical disc Ovarian cysts Past Surgical History Status post cervical discectomy November 2017 Status post ovarian cystectomy Reported Medications Refer to EMR Allergies: Coded Allergies: No Known Allergies (Unverified Adverse Reaction, Unknown, 12/18/17) Active Ordered Medications Refer to EMR Family History Mother with history of endometriosis Father with history of breast CA Both parents with history back problems Social History Denies tobacco or illicit drug abuse Rare alcohol use Physical Exam Vital Signs Date Time Temp Pulse Resp B/P (MAP) Pulse Ox O2 Delivery O2 Flow Rate FiO2 12/20/17 08:00 97.8 93 16 110/67 (81) 98 12/20/17 04:00 96.2 82 17 100/60 (73) 99 12/20/17 00:00 96.8 90 18 92/53 (66) 97 12/19/17 20:00 97.7 104 18 115/58 (77) 98 12/19/17 17:15 99.8 111 18 114/57 (76) 100 12/19/17 12:49 99.0 113 14 114/67 (00) 100 Physical Exam GENERAL: This is a well-nourished, well-developed patient, in no apparent distress. SKIN: No rashes, ecchymoses or lesions. Cool and dry. HEAD: Atraumatic. Normocephalic. No temporal or scalp tenderness. EYES: Pupils equal round and reactive. Extraocular motions intact. No scleral icterus. No injection or drainage. ENT: Nose without bleeding, purulent drainage or septal hematoma. Throat without erythema, tonsillar hypertrophy or exudate. Uvula midline. Airway patent. NECK: Trachea midline. No JVD or lymphadenopathy. Supple, nontender, no meningeal signs. GASTROINTESTINAL: Abdomen soft, non-tender, nondistended. No hepato-splenomegaly , or palpable masses. No guarding. GENITOURINARY: No CVA tenderness, bladder not distended MUSCULOSKELETAL: Extremities without clubbing, cyanosis, or edema. No joint tenderness, effusion, or edema noted. No calf tenderness. Negative Homans sign bilaterally. NEUROLOGICAL: Awake and alert. Cranial nerves II through XII intact. Motor and sensory grossly within normal limits. Five out of 5 muscle strength in all muscle groups. Normal speech. Lab results reviewed: Yes Laboratory Tests Test 12/19/17 18:27 Chlamydia trachomatis DNA (PCR) NOT DETECTED Neisseria gonorrhoeae DNA (PCR) NOT DETECTED Date/Time Source Procedure Growth Status 12/18/17 05:15 Blood Peripheral Aerobic Blood Culture - Preliminary NO GROWTH IN 2 DAYS Resulted 12/18/17 05:15 Blood Peripheral Anaerobic Blood Culture - Preliminary NO GROWTH IN 2 DAYS Resulted 12/18/17 05:30 Urine Clean Catch Urine Culture - Final Escherichia Coli Complete Result Diagram: 12/18/17 0510 12/19/17 0505 Personally reviewed images: Yes Imaging Last Impressions Renal Ultrasound 12/20/17 0000 Signed Impressions: Service Date/Time: November 08:46 - CONCLUSION: 1. The examination is within normal limits. Que Dallas MD Chest X-Ray 12/18/17 0501 Signed Impressions: Service Date/Time: Monday, December 18, 2017 05:08 - CONCLUSION: No acute disease. Monroe Mckeon MD Gall Bladder Ultrasound 12/18/17 0000 Signed Impressions: Service Date/Time: Monday, December 18, 2017 07:54 - CONCLUSION: 1. Unremarkable right upper quadrant ultrasound examination. Specifically, no cholelithiasis or sonographic evidence for cholecystitis. Caio Davies MD CT Angiography 12/18/17 0000 Signed Impressions: Service Date/Time: Monday, December 18, 2017 06:14 - CONCLUSION: Negative exam with no evidence of pulmonary embolism. Monroe Mckeon MD Abdomen/Pelvis CT 12/18/17 0000 Signed Impressions: Service Date/Time: Monday, December 18, 2017 06:14 - CONCLUSION: 1. Unremarkable gallbladder. 2. Moderate-sized left ovarian cyst. 3. Bowel gas pattern is within normal limits. Monroe Mckeon MD Assessment and Plan Assessment and Plan Urologic impression: 1. Mild right hydronephrosis 2. Gross hematuria with clots possibly related to ureteral stone Plan: 1. N.p.o. after midnight 2. Patient scheduled for cystoscopy, right retrograde pyelogram and possible right ureteral stent placement for 9:30 AM tomorrow. Problem Qualifiers (1) Abdominal pain: Qualified Codes: R10.11 - Right upper quadrant pain Gallito Tomlinson MD Dec 20, 2017 11:56
[2017-12-20 12:00] VITALS: BP 112/73; PULSE 78; RESP 17; TEMP 98.5; O2SAT 100
[2017-12-20] MEDS: PANTOPRAZOLE SODIUM 40 MG VIAL IV PUSH SCH (16:43)
[2017-12-20] MEDS ORDERED: INSULIN HUMAN REGULAR 1,000 UNITS/10 ML VIAL SQ PRN (17:00)
[2017-12-20] MEDS: ONDANSETRON HCL 4 MG/2 ML VIAL IV PUSH PRN ×2 (17:00→20:59)
[2017-12-20] MEDS ORDERED: POVIDONE IODINE 5% (ANTISEPSIS KIT) 4 APPLICATIONS EACH NARE PRN (17:00)
[2017-12-20] MEDS ORDERED: CHLORHEXIDINE GLUCONATE 2 % 1 PACK (2 CLOTHS) TOPICAL PRN (17:00)
[2017-12-20] MEDS ORDERED: SODIUM CHLORID 0.9% 500 ML IV PRN (17:00)
[2017-12-20] MEDS ORDERED: METOPROLOL TARTRATE 25 MG TAB PO PRN (17:00)
[2017-12-20] MEDS ORDERED: LACTATED RINGER'S 1000 ML IV PRN (17:00)
[2017-12-20] MEDS: ACETAMINOPHEN/HYDROcodone 325 MG/7.5 MG TAB PO PRN (19:26)
[2017-12-20 20:00] VITALS: BP 107/63; PULSE 86; RESP 18; TEMP 98.5; O2SAT 96
[2017-12-20] MEDS: TEMAZEPAM 15 MG CAP PO PRN (20:59)
[2017-12-21] VITALS: BP 101/58; PULSE 75; RESP 18; TEMP 97.5; O2SAT 96
[2017-12-21] MEDS: NS + KCL 20 MEQ INJ 1,000 ML IV SCH ×2 (02:26→12:15)
[2017-12-21] MEDS: HYDROmorphone HCL PF 2 MG/ML VIAL IV PUSH PRN ×5 (02:27→20:02)
[2017-12-21] MEDS: LORazepam 2 MG/ML VIAL IV PUSH PRN ×4 (02:27→20:02)
[2017-12-21 05:06] LABS: BICARBONATE 28.2 MEQ/L (21.0-32.0); CALCIUM 8.3 MG/DL (8.5-10.1); CREATININE 0.48 MG/DL (0.50-1.00); DIRECT BILIRUBIN ADULT 0.1 MG/DL (0.0-0.2); INDIRECT BILIRUBIN 0.4 MG/DL (0.0-0.8); TOTAL BILIRUBIN ADULT 0.5 MG/DL (0.2-1.0); TOTAL PROTEIN 6.6 GM/DL (6.4-8.2)
[2017-12-21 08:00] VITALS: BP 116/67; PULSE 84; RESP 17; TEMP 96.8; O2SAT 96
--- NOTE | 2017-12-21 08:57 | HHI.PR ---
Subjective Remarks Pt reports that she had some nausea with food intake yesterday but no vomiting Abd/flank pain is relatively unchanged Pt reports that her vaginal bleeding is heavier today and is requiring use of tampons She has not had a BM yet today. Her mother reports that the pt has been increasingly upset and having episodes of crying Objective Vitals Vital Signs Date Time Temp Pulse Resp B/P (MAP) Pulse Ox O2 Delivery O2 Flow Rate FiO2 12/21/17 00:00 97.5 75 18 101/58 (72) 96 12/20/17 20:00 98.5 86 18 107/63 (78) 96 12/20/17 12:00 98.5 78 17 112/73 (86) 100 Result Diagram: 12/18/17 0510 12/21/17 0320 Other Results Laboratory Tests Test 12/19/17 18:27 12/21/17 03:20 Chlamydia trachomatis DNA (PCR) NOT DETECTED Neisseria gonorrhoeae DNA (PCR) NOT DETECTED Blood Urea Nitrogen 7 MG/DL Creatinine 0.48 MG/DL Random Glucose 89 MG/DL Total Protein 6.6 GM/DL Albumin 3.0 GM/DL Calcium Level 8.3 MG/DL Alkaline Phosphatase 80 U/L Aspartate Amino Transf (AST/SGOT) 21 U/L Alanine Aminotransferase (ALT/SGPT) 35 U/L Total Bilirubin 0.5 MG/DL Direct Bilirubin 0.1 MG/DL Sodium Level 141 MEQ/L Potassium Level 4.1 MEQ/L Chloride Level 108 MEQ/L Carbon Dioxide Level 28.2 MEQ/L Anion Gap 5 MEQ/L Estimat Glomerular Filtration Rate 162 ML/MIN Indirect Bilirubin 0.4 MG/DL Imaging Last 72 hours Impressions Chest X-Ray 12/18/17 0501 Signed Impressions: Service Date/Time: Monday, December 18, 2017 05:08 - CONCLUSION: No acute disease. Monroe Mckeon MD Gall Bladder Ultrasound 12/18/17 0000 Signed Impressions: Service Date/Time: Monday, December 18, 2017 07:54 - CONCLUSION: 1. Unremarkable right upper quadrant ultrasound examination. Specifically, no cholelithiasis or sonographic evidence for cholecystitis. Caio Davies MD CT Angiography 12/18/17 0000 Signed Impressions: Service Date/Time: Monday, December 18, 2017 06:14 - CONCLUSION: Negative exam with no evidence of pulmonary embolism. Monroe Mckeon MD Abdomen/Pelvis CT 12/18/17 0000 Signed Impressions: Service Date/Time: Monday, December 18, 2017 06:14 - CONCLUSION: 1. Unremarkable gallbladder. 2. Moderate-sized left ovarian cyst. 3. Bowel gas pattern is within normal limits. Monroe Mckeon MD Objective Remarks General: NAD, AAOx3 Neck: surgical incision on the anterior right side of the neck is c/d/i Chest: CTA Cardiac: Regular Abd: +BS, soft ND, right sided abdominal and flank tenderness with voluntary guarding Ext: No edema A/P Problem List: (1) Abdominal pain ICD Codes: R10.9 - Unspecified abdominal pain Status: Acute Plan: Right sided Abd pain/flank pain Hematuria Nausea/vomiting - Pt is a 22 y/o female who presented to the [facility] ED on 12/18/17 with complaints of right sided abd/flank pain and fever. - GB US (12/18/17) --> Unremarkable right upper quadrant ultrasound examination. Specifically, no cholelithiasis or sonographic evidence for cholecystitis. - CT Abd/pelvis (12/18/17) --> Unremarkable gallbladder. Moderate-sized left ovarian cyst. Bowel gas pattern is within normal limits. - UA at admission was abnormal, urine culture growing E. coli. - Pt has been given IV fluids, pain control and IV antibiotics (Rocephin). - Pt developed hematuria on 12/19 and continued N/V, fever and flank pain. There was concern for possible radiolucent stone presence. The case was discussed between Dr. Woods and Dr. Tomlinson and it was decided to transfer the pt to [facility] for possible cystoureteroscopy with possible stone retrieval. - Renal US (12/20) --> Negative - Pts last fever was on 12/19 @ 17:15 - Repeat UA on 12/19 noted large amount of blood. - Pt is planned for cystoscopy, right retrograde pyelogram and possible right ureteral stent placement today - Cont. IVF - Pain control PRN - Supportive care ADDENDUM: - Pt was seen in PACU after cystoscopy which was noted to be negative. There was no noted hematuria when the bladder was drained with cystoscopy and per discussion with Dr. Scaglia, her ureter and bladder were totally normal. - Cisneros catheter was placed post-procedurally to monitor for any hematuria. - The pts symptoms were discussed further in the PACU and she noted that the RUQ/Right flank pain is constant but she has noted it to be worse with food intake since admission. She continues to be nauseated but no vomiting yesterday or today. - She revealed that she had been taking Ibuprofen 800mg 2-3 times per day for about 2-3 weeks due to her recent neck injury and surgery. - She reports that she noted the vaginal bleeding started yesterday and is much heavier than it had been since her Implanon implant was placed. - Its not clear if her hematuria could have been from contamination from vaginal bleeding or not. - She also noted that she had some streak of blood in her stool two days ago as well. - The case was discussed with her Health Outreach Worker, Dr. Dung Espino, and he states that he will come by to see the patient today - We will consult GI, case was discussed with GI [employer], Meche Schaefer, today. - Keep the pt NPO for now to see if they can perform EGD today - Pt has been on Protonix 40mg IV daily since admission - Consider adding Carafate or GI cocktail - Could also consider HIDA scan if EGD is negative. (2) Pyelonephritis ICD Codes: N12 - Tubulo-interstitial nephritis, not specified as acute or chronic Status: Acute Assessment and Plan Patient examined. Assessment and plan formulated with Callie Luther PA-C. I agree with the above. going for cysto rpg today. f/u results. pain control. ADDENDUM; spoke with Dr Tomlinson after procedure. urine was crystal clear and the right ureter not obstructed. leave cisneros x 6hrs to assure no hematuria. She is complaining of alot of vaginal bleeding which is unusual since implantation of her Implanon last yr..Discussed with her Health Outreach Worker. Pt was taking high dose ibuprofen recently due to a neck injury before and after the surgery. now having alot of gi complaints with a worsening of her abdomen pain after meals....?ulcer. had some blood in stool. Ask GI to eval her for ?egd. cont ppi. No obvious cholecystitis on ct or u/s . Updated family. Problem Qualifiers (1) Abdominal pain: Qualified Codes: R10.11 - Right upper quadrant pain Callie Luther Dec 21, 2017 08:57 Ludwig Swan MD Dec 21, 2017 09:53
[2017-12-21] MEDS: DOCUSATE SODIUM 100 MG CAP PO SCH ×2 (09:00→20:01)
[2017-12-21] MEDS: cefTRIAXone INJ 1,000 MG in SODIUM CHLORIDE 0.9% INJ 100 ML IV SCH (10:28)
--- NOTE | 2017-12-21 10:49 | PD.OP ---
Operative Report Date of Surgery: Dec 21, 2017 Preoperative Diagnosis: (1) Gross hematuria Postoperative Diagnosis: (1) Gross hematuria Procedure: Cystoscopy and right retrograde pyelogram Anesthesia: General Surgeon: Gallito Tomlinson Beekeeper(s): None Operation and Findings: Indication for procedures: Case of a pleasant 22-year-old female with recent development right flank pain and gross hematuria who presents now for further urologic workup to include cystoscopy, right retrograde pyelogram and possible right ureteral stent placement. Operative procedures in detail: Patient was brought to the operating room suite and placed supine on the OR table. She was then placed under general anesthesia. She was then repositioned in the dorsolithotomy position and prepped and draped in normal sterile fashion. After an appropriate timeout was undertaken I proceeded with cystoscopic evaluation utilizing the rigid cystoscope with the 20 Tunisian sheath and the 30 lens. Both right and left ureteral orifices were in correct anatomic position draining clear yellow urine. There were no bladder mucosal lesions, calculi or diverticula formation. No clots were seen within the bladder. A 6 Tunisian open-ended ureteral catheter was then utilized and a right retrograde pyelogram study performed. There was prompt filling and drainage of the collecting system without any evidence of filling defects or obstruction. The bladder was drained of all irrigant fluid and a 16 Tunisian 10 cc Rose catheter was placed and connected to gravity drainage. The patient tolerated the procedures without complications and was transferred to the PACU in satisfactory condition. Gallito Tomlinson MD Dec 21, 2017 10:49
[2017-12-21] MEDS ORDERED: DO NOT ADM ANY ANTICOAGULANT DRUGS PRN (10:53)
[2017-12-21] MEDS ORDERED: *ONDANSETRON 4 MG VIAL PERIprocedural Use ONLY ONE (10:55)
[2017-12-21] MEDS ORDERED: MIDAZOLAM HCL 2 MG/2 ML VIAL ONE (11:05)
[2017-12-21 12:00] VITALS: BP 107/69; PULSE 88; RESP 17; TEMP 96.4; O2SAT 100
[2017-12-21] MEDS ORDERED: PROPOFOL 200 MG/20 ML AMP IV ONE (12:00)
[2017-12-21] MEDS ORDERED: LIDOCAINE HCL 1% PF 5 ML SYRINGE OTHER ONE (12:00)
[2017-12-21] MEDS ORDERED: ONDANSETRON HCL 4 MG/2 ML VIAL IV ONE (12:00)
[2017-12-21] MEDS ORDERED: KETOROLAC TROMETHAMINE 30 MG/ML (IVP) VIAL IV PUSH ONE (12:00)
[2017-12-21] MEDS ORDERED: DEXAMETHASONE SOD PHOS 4 MG/ML VIAL IV ONE (12:00)
[2017-12-21] MEDS: SODIUM CHLORIDE 0.9% FLUSH 10 ML FLUSH IV FLUSH PRN (12:33)
--- NOTE | 2017-12-21 12:59 | PD.CONS ---
HPI History of Present Illness This is a 22 year old F with no significant medical history except a recent neck surgery last month after a fall causing and ruptured disc in her spine. Pt presented to [place] ER on Dec 18 with complaint of right flank and abdominal pain, she was diagnosed with a UTI and started on abx, felt some relief after starting abx, however shortly after started with hematuria. She has now been transferred to [place] in [facility] for evaluation by urology who did a cystoscopy this morning. GI has been consulted to evaluate pt for abdominal pain, nausea, vomiting. She reports generalized abdominal pain for the past couple days, worse after eating. Associated nausea and vomiting, states projectile vomiting, denies emesis. Also complaining of one isolated episode of BRB in stool, two days ago. Denies history of this, denies history of chronic constipation. Of note, pt has been taking Ibuprofen multiple times a day for the past month since having neck surgery. CT abdomen and pelvis W IV contrast (12/18) --> Unremarkable gallbladder. Moderate-sized left ovarian cyst. Bowel gas pattern WNL. (Meche Melgar) PFSH Past Medical History Denies Past Surgical History Cervical discectomy Ovarian Cystectomy (Meche Melgar) Coded Allergies: No Known Allergies (Unverified Adverse Reaction, Unknown, 12/18/17) Social History ETOH- occasional, approx once a month Denies smoking Denies illicit drug use (Meche Melgar) Review of Systems Gastrointestinal: COMPLAINS OF: Abdominal pain, Bloody stools, Nausea, Vomiting , DENIES: Black stools, Constipation, Diarrhea, Difficulty Swallowing, Odynophagia, Swelling of Abdomen, Heartburn, Hematemesis (Meche Melgar) GI Exam Vitals I&O Vital Signs Date Time Temp Pulse Resp B/P (MAP) Pulse Ox O2 Delivery O2 Flow Rate FiO2 12/21/17 12:00 96.4 88 17 107/69 (82) 100 12/21/17 11:30 98.0 101 16 125/88 (100) 100 Nasal Cannula 2 12/21/17 11:15 97 16 132/80 (97) 100 Nasal Cannula 2 12/21/17 11:00 115 16 122/70 (87) 100 Nasal Cannula 2 12/21/17 10:58 99 16 110/68 (82) 100 Nasal Cannula 2 12/21/17 10:54 97.4 114 16 116/83 (94) 100 Nasal Cannula 2 12/21/17 08:00 96.8 84 17 116/67 (83) 96 12/21/17 07:47 18 12/21/17 00:00 97.5 75 18 101/58 (72) 96 12/20/17 20:00 98.5 86 18 107/63 (78) 96 I/O 12/20/17 12/20/17 12/20/17 12/21/17 12/21/17 12/21/17 07:00 15:00 23:00 07:00 15:00 23:00 Intake Total 1000 ml 120 ml 1680 ml 600 ml Output Total 800 ml 600 ml Balance 1000 ml -680 ml 1680 ml 0 ml Intake Oral 120 ml 780 ml IV Total 1000 ml 900 ml 600 ml Output Urine Total 800 ml 600 ml # Voids 0 3 # Bowel Movements 0 Imaging Last Impressions Renal Ultrasound 12/20/17 0000 Signed Impressions: Service Date/Time: November 08:46 - CONCLUSION: 1. The examination is within normal limits. Que Dallas MD Chest X-Ray 12/18/17 0501 Signed Impressions: Service Date/Time: Monday, December 18, 2017 05:08 - CONCLUSION: No acute disease. Monroe Mckeon MD Gall Bladder Ultrasound 12/18/17 0000 Signed Impressions: Service Date/Time: Monday, December 18, 2017 07:54 - CONCLUSION: 1. Unremarkable right upper quadrant ultrasound examination. Specifically, no cholelithiasis or sonographic evidence for cholecystitis. Caio Davies MD CT Angiography 12/18/17 0000 Signed Impressions: Service Date/Time: Monday, December 18, 2017 06:14 - CONCLUSION: Negative exam with no evidence of pulmonary embolism. Monroe Mckeon MD Abdomen/Pelvis CT 12/18/17 0000 Signed Impressions: Service Date/Time: Monday, December 18, 2017 06:14 - CONCLUSION: 1. Unremarkable gallbladder. 2. Moderate-sized left ovarian cyst. 3. Bowel gas pattern is within normal limits. Monroe Mckeon MD Laboratory Test 12/21/17 03:20 Blood Urea Nitrogen 7 MG/DL Creatinine 0.48 MG/DL Random Glucose 89 MG/DL Total Protein 6.6 GM/DL Albumin 3.0 GM/DL Calcium Level 8.3 MG/DL Alkaline Phosphatase 80 U/L Aspartate Amino Transf (AST/SGOT) 21 U/L Alanine Aminotransferase (ALT/SGPT) 35 U/L Total Bilirubin 0.5 MG/DL Direct Bilirubin 0.1 MG/DL Sodium Level 141 MEQ/L Potassium Level 4.1 MEQ/L Chloride Level 108 MEQ/L Carbon Dioxide Level 28.2 MEQ/L Anion Gap 5 MEQ/L Estimat Glomerular Filtration Rate 162 ML/MIN Indirect Bilirubin 0.4 MG/DL Date/Time Source Procedure Growth Status 12/18/17 05:15 Blood Peripheral Aerobic Blood Culture - Preliminary NO GROWTH IN 3 DAYS Resulted 12/18/17 05:15 Blood Peripheral Anaerobic Blood Culture - Preliminary NO GROWTH IN 3 DAYS Resulted 12/18/17 05:30 Urine Clean Catch Urine Culture - Final Escherichia Coli Complete Physical Examination HEENT: Normocephalic; atraumatic CHEST: Even/unlabored CARDIAC: RRR ABDOMEN: Soft, nondistended, diffusely tender, bowel sounds active EXTREMITIES: No clubbing, cyanosis, or edema. SKIN: Normal; no rash; no jaundice. APRN: No focal deficits; alert and oriented times three. (Meche Melgar) Assessment and Plan Plan Assessment: - Abdominal pain, nausea, vomiting- Abdominal pain is diffuse, worse after eating. CT abdomen/pelvis W IV contrast showing no cause for abdominal pain. Vomiting described as projectile, denies hematemesis and coffee ground emesis. Of note, has been taking Ibuprofen around the clock for the past month since having cervical discectomy. Has never had EGD. ETOH, approx once a month. Denies smoking. - BRBPR- one isolated episode 2 days ago, has not had BM since. Denies chronic constipation. Has never had colonoscopy. H/H stable. - Hematuria- S/P cystoscopy this morning Plan: EGD today Obtain consent Keep pt NPO Hemoccult stool Further recommendations based on findings of above and clinical course Pt has been seen and examined by myself and Dr. Vasquez and this note is written on his behalf (Meche Melgar) Physician Comments Seen and examined with MALCOM, egd planned for today. Npo currently. Further recs to follow. Discussed with pt. and Dad. Dr. Espinoza to follow over the weekend. Thank you (Piter Vasquez MD) Meche Melgar Dec 21, 2017 12:59 Piter Vasquez MD Dec 21, 2017 19:43
--- NOTE | 2017-12-21 15:15 | GIPROC ---
[facility] [address] [facility]. [facility], [id number] EGD PROCEDURE REPORT EXAM DATE: 12/21/2017 PATIENT NAME: Jerald Aldridge MR #: [id number] BIRTHDATE: 1995 ATTENDING: Piter Vasquez MD ORDER #: [id number] CLASS LINEMAN: Sunil Barker and Ashlee Foreman STATUS: inpatient INDICATIONS: The patient is a 22 yr old female here for an EGD due to epigastric abdominal pain PROCEDURE PERFORMED: EGD w/ biopsy MEDICATIONS: None and Per Anesthesia. TOPICAL ANESTHETIC: CONSENT: The patient understands the risks and benefits of the procedure and understands that these risks include, but are not limited to: sedation, allergic reaction, infection, perforation and/or bleeding. Alternative means of evaluation and treatment include, among others: physical exam, x-rays, and/or surgical intervention. The patient elects to proceed with this endoscopic procedure. medical equipment was checked for proper function. Hand hygiene and appropriate measures for infection prevention was taken. After the risks, benefits and alternatives of the procedure were thoroughly explained, Informed consent was verified, confirmed and timeout was successfully executed by the treatment team. The patient was anesthetized with topical anesthesia and the Pentax EG-[id number] endoscope was introduced through the mouth and advanced to the second portion of the duodenum. Retroflexed views revealed no abnormalities The gastroscope was then slowly withdrawn and removed. ESOPHAGUS: The mucosa of the esophagus appeared normal. STOMACH: There was erythematous severe gastritis in the gastric antrum. A biopsy was performed using cold forceps. Sample sent for histology. DUODENUM: The duodenal mucosa appeared normal in the bulb and second portion of the duodenum. ADVERSE EVENTS: There were no complications. IMPRESSIONS: 1. The esophagus appeared normal 2. There was erythematous gastritis in the gastric antrum; biopsy was performed 3. Normal duodenal mucosa in the bulb and second portion of the duodenum 4. Retroflexed views revealed no abnormalities RECOMMENDATIONS: 1. Await biopsy results. Biopsy results will not be ready for 7-10 days. If you don't hear from us in two weeks, call our office for biopsy results. 2. Anti-reflux regimen 3. Continue PPI 4. Avoid NSAIDS PATIENT CONDITION: stable DISPOSITION: Inpatient REPEAT EXAM: Return 1 year EGD pending biopsy results Piter Vasquez MD eSigned: Piter Vasquez MD 12/21/2017 3:15 PM cc: PATIENT NAME: Jerald Aldridge Magen MR#: [id number]
[2017-12-21 16:00] VITALS: BP 110/65; PULSE 80; RESP 17; TEMP 96.5; O2SAT 97
[2017-12-21] MEDS: ONDANSETRON HCL 4 MG/2 ML VIAL IV PUSH PRN (16:00)
[2017-12-21 17:57] VITALS: O2SAT 97
[2017-12-21] MEDS: PANTOPRAZOLE SODIUM 40 MG VIAL IV PUSH SCH (18:02)
[2017-12-21 18:49] LABS: AUTOMATED NEUTROPHIL # 1.5 TH/MM3 (1.8-7.7); BASOPHIL % 0.4 % (0.0-2.0); EOSINOPHIL % 0.1 % (0.0-4.0); HEMATOCRIT 35.7 % (35.0-46.0); HEMOGLOBIN 12.8 GM/DL (11.6-15.3); LYMPH % 18.2 % (9.0-44.0); LYMPHOCYTE # 0.4 TH/MM3 (1.0-4.8); MEAN CELL VOLUME 87.8 FL (80.0-100.0); MEAN CORPUSCULAR HEMOGLOBIN 31.5 PG (27.0-34.0); MEAN CORPUSCULAR HGB CONC 35.9 % (32.0-36.0); MEAN PLATELET VOLUME 8.9 FL (7.0-11.0); MONO % 3.1 % (0.0-8.0); MONOCYTE # 0.1 TH/MM3 (0-0.9); NEUT % 78.2 % (16.0-70.0); PLATELET COUNT 158 TH/MM3 (150-450); RED BLOOD COUNT 4.06 MIL/MM3 (4.00-5.30); RED CELL DISTRIBUTION WIDTH 12.6 % (11.6-17.2)
[2017-12-21 20:00] VITALS: BP 101/61; PULSE 78; RESP 18; TEMP 97.5; O2SAT 98
[2017-12-21] MEDS: TEMAZEPAM 15 MG CAP PO PRN (21:25)
[2017-12-22 00:20] VITALS: BP 101/55; PULSE 80; RESP 17; TEMP 97.4; O2SAT 96
[2017-12-22] MEDS: NS + KCL 20 MEQ INJ 1,000 ML IV SCH ×2 (00:52→08:15)
[2017-12-22] MEDS: ACETAMINOPHEN/HYDROcodone 325 MG/7.5 MG TAB PO PRN ×2 (00:53→10:02)
[2017-12-22 08:00] VITALS: BP 111/55; PULSE 99; RESP 20; TEMP 98.4; O2SAT 98
[2017-12-22] MEDS: ONDANSETRON HCL 4 MG/2 ML VIAL IV PUSH PRN (08:02)
[2017-12-22] MEDS: DOCUSATE SODIUM 100 MG CAP PO SCH (08:03)
[2017-12-22] MEDS ORDERED: MAGNESIUM HYDROXIDE SUSP 30 ML CUP PO ONE (08:30)
--- NOTE | 2017-12-22 08:50 | HHI.PR ---
Subjective Remarks Pt reports that her right sided abd pain is improving. She did have some nausea with eating last night but denies any vomiting She is feeling somewhat constipated +Flatus Objective Vitals Vital Signs Date Time Temp Pulse Resp B/P (MAP) Pulse Ox O2 Delivery O2 Flow Rate FiO2 12/22/17 00:20 97.4 80 17 101/55 (70) 96 12/21/17 20:00 97.5 78 18 101/61 (74) 98 12/21/17 17:57 97 21 12/21/17 16:32 18 12/21/17 16:00 96.5 80 17 110/65 (80) 97 12/21/17 15:22 97.4 83 16 112/76 (88) 98 12/21/17 12:00 96.4 88 17 107/69 (82) 100 12/21/17 11:30 98.0 101 16 125/88 (100) 100 Nasal Cannula 2 12/21/17 11:15 97 16 132/80 (97) 100 Nasal Cannula 2 12/21/17 11:00 115 16 122/70 (87) 100 Nasal Cannula 2 12/21/17 10:58 99 16 110/68 (82) 100 Nasal Cannula 2 12/21/17 10:54 97.4 114 16 116/83 (94) 100 Nasal Cannula 2 Result Diagram: 12/21/17 1743 12/21/17 0320 Other Results Laboratory Tests Test 12/21/17 03:20 12/21/17 17:43 Blood Urea Nitrogen 7 MG/DL Creatinine 0.48 MG/DL Random Glucose 89 MG/DL Total Protein 6.6 GM/DL Albumin 3.0 GM/DL Calcium Level 8.3 MG/DL Alkaline Phosphatase 80 U/L Aspartate Amino Transf (AST/SGOT) 21 U/L Alanine Aminotransferase (ALT/SGPT) 35 U/L Total Bilirubin 0.5 MG/DL Direct Bilirubin 0.1 MG/DL Sodium Level 141 MEQ/L Potassium Level 4.1 MEQ/L Chloride Level 108 MEQ/L Carbon Dioxide Level 28.2 MEQ/L Anion Gap 5 MEQ/L Estimat Glomerular Filtration Rate 162 ML/MIN Indirect Bilirubin 0.4 MG/DL White Blood Count 2.0 TH/MM3 Red Blood Count 4.06 MIL/MM3 Hemoglobin 12.8 GM/DL Hematocrit 35.7 % Mean Corpuscular Volume 87.8 FL Mean Corpuscular Hemoglobin 31.5 PG Mean Corpuscular Hemoglobin Concent 35.9 % Red Cell Distribution Width 12.6 % Platelet Count 158 TH/MM3 Mean Platelet Volume 8.9 FL Neutrophils (%) (Auto) 78.2 % Lymphocytes (%) (Auto) 18.2 % Monocytes (%) (Auto) 3.1 % Eosinophils (%) (Auto) 0.1 % Basophils (%) (Auto) 0.4 % Neutrophils # (Auto) 1.5 TH/MM3 Lymphocytes # (Auto) 0.4 TH/MM3 Monocytes # (Auto) 0.1 TH/MM3 Eosinophils # (Auto) 0.0 TH/MM3 Basophils # (Auto) 0.0 TH/MM3 CBC Comment DIFF FINAL Differential Comment Imaging Last 72 hours Impressions Chest X-Ray 12/18/17 0501 Signed Impressions: Service Date/Time: Monday, December 18, 2017 05:08 - CONCLUSION: No acute disease. Monroe Mckeon MD Gall Bladder Ultrasound 12/18/17 0000 Signed Impressions: Service Date/Time: Monday, December 18, 2017 07:54 - CONCLUSION: 1. Unremarkable right upper quadrant ultrasound examination. Specifically, no cholelithiasis or sonographic evidence for cholecystitis. Caio Davies MD CT Angiography 12/18/17 0000 Signed Impressions: Service Date/Time: Monday, December 18, 2017 06:14 - CONCLUSION: Negative exam with no evidence of pulmonary embolism. Monroe Mckeon MD Abdomen/Pelvis CT 12/18/17 0000 Signed Impressions: Service Date/Time: Monday, December 18, 2017 06:14 - CONCLUSION: 1. Unremarkable gallbladder. 2. Moderate-sized left ovarian cyst. 3. Bowel gas pattern is within normal limits. Monroe Mckeon MD Objective Remarks General: NAD, AAOx3 Neck: surgical incision on the anterior right side of the neck is c/d/i Chest: CTA Cardiac: Regular Abd: +BS, soft ND, right sided abdominal and flank tenderness improving Ext: No edema A/P Problem List: (1) Abdominal pain ICD Codes: R10.9 - Unspecified abdominal pain Status: Acute Plan: Right sided Abd pain/flank pain Hematuria Nausea/vomiting - Pt is a 22 y/o female who presented to the [facility] ED on 12/18/17 with complaints of right sided abd/flank pain and fever. - GB US (12/18/17) --> Unremarkable right upper quadrant ultrasound examination. Specifically, no cholelithiasis or sonographic evidence for cholecystitis. - CT Abd/pelvis (12/18/17) --> Unremarkable gallbladder. Moderate-sized left ovarian cyst. Bowel gas pattern is within normal limits. - UA at admission was abnormal, urine culture growing E. coli. - Pt has been given IV fluids, pain control and IV antibiotics (Rocephin). - Pt developed hematuria on 12/19 and continued N/V, fever and flank pain. There was concern for possible radiolucent stone presence. The case was discussed between Dr. Woods and Dr. Tomlinson and it was decided to transfer the pt to [facility] for possible cystoureteroscopy with possible stone retrieval. - Renal US (12/20) --> Negative - Pts last fever was on 12/19 @ 17:15 - Repeat UA on 12/19 noted large amount of blood. - Pt underwent cystoscopy, right retrograde pyelogram on 12/21 which was noted to be negative. There was no noted hematuria when the bladder was drained with cystoscopy and per discussion with Dr. Tomlinson, her ureter and bladder were totally normal. - Rose catheter was placed post-procedurally and pt did not have any further any hematuria. - The pts symptoms were discussed further in the PACU and she noted that the RUQ/Right flank pain is constant but she has noted it to be worse with food intake since admission. She continues to be nauseated but no vomiting yesterday or today. - She revealed that she had been taking Ibuprofen 800mg 2-3 times per day for about 2-3 weeks due to her recent neck injury and surgery. - She reports that she noted the vaginal bleeding started yesterday and is much heavier than it had been since her Implanon implant was placed. - Its not clear if her hematuria could have been from contamination from vaginal bleeding or not. - She also noted that she had some streak of blood in her stool two days ago as well. - The case was discussed with her Embroidery Assistant, Dr. Dung Espino, and he visited with the pt and her family on 12/21 - GI was consulted and pt underwent evaluation with EGD on 12/21/17 which noted gastritis. - Protonix increased to 40mg BID - Add Carafate - Pt is feeling constipated, cont. Colace BID and add on MOM PRN. Discussed minimizing the pts pain medications and encouraged ambulation. - Overall the pt is feeling better today but still with some pain - Discussed dietary modifications regarding her gastritis. (2) Pyelonephritis ICD Codes: N12 - Tubulo-interstitial nephritis, not specified as acute or chronic Status: Acute Assessment and Plan Patient examined. Assessment and plan formulated with Callie Luther PA-C. I agree with the above. doing much better. jacquelin food. some constipation from pain meds. much less pain. egd showed severe gastritis. pt asking for d/c. d/c on abx for uti. ppi for gastritis. prn zofran and norco. f/u gi and bx pending. f/u pcp. f/u corporate compliance officer. Problem Qualifiers (1) Abdominal pain: Qualified Codes: R10.11 - Right upper quadrant pain Callie Luther Dec 22, 2017 08:50 Ludwig Swan MD Dec 22, 2017 13:13
[2017-12-22 08:52] LABS: AUTOMATED NEUTROPHIL # 2.5 TH/MM3 (1.8-7.7); BASOPHIL % 0.6 % (0.0-2.0); EOSINOPHIL # 0.1 TH/MM3 (0-0.4); EOSINOPHIL % 1.3 % (0.0-4.0); HEMATOCRIT 30.9 % (35.0-46.0); LYMPHOCYTE # 1.2 TH/MM3 (1.0-4.8); MEAN CELL VOLUME 87.7 FL (80.0-100.0); MEAN CORPUSCULAR HEMOGLOBIN 31.2 PG (27.0-34.0); MEAN CORPUSCULAR HGB CONC 35.6 % (32.0-36.0); MEAN PLATELET VOLUME 8.7 FL (7.0-11.0); MONO % 10.1 % (0.0-8.0); MONOCYTE # 0.4 TH/MM3 (0-0.9); PLATELET COUNT 164 TH/MM3 (150-450); RED BLOOD COUNT 3.53 MIL/MM3 (4.00-5.30); RED CELL DISTRIBUTION WIDTH 12.9 % (11.6-17.2); WHITE BLOOD COUNT 4.1 TH/MM3 (4.0-11.0)
[2017-12-22] MEDS ORDERED: PANTOPRAZOLE SODIUM 40 MG VIAL IV PUSH SCH (09:00)
[2017-12-22 09:16] LABS: BICARBONATE 28.1 MEQ/L (21.0-32.0); CALCIUM 8.3 MG/DL (8.5-10.1); CREATININE 0.63 MG/DL (0.50-1.00); MAGNESIUM 1.9 MG/DL (1.5-2.5)
[2017-12-22] MEDS ORDERED: SUCRALFATE 1 GM TAB PO SCH (10:00)
[2017-12-22] MEDS ORDERED: PROT40TA PO (10:00)
[2017-12-22] MEDS ORDERED: ZOFR8TAB4 SL (10:00)
[2017-12-22] MEDS ORDERED: CARA1TAB6 PO (10:00)
--- NOTE | 2017-12-22 10:04 | HHI.DCPOC ---
Discharge Care Plan Diagnosis: (1) Acute superficial gastritis without hemorrhage (2) Gross hematuria (3) Abdominal pain (4) Ovarian cyst Goals to Promote Your Health * To prevent worsening of your condition and complications * To maintain your health at the optimal level Directions to Meet Your Goals Take your medications as prescribed Follow your dietary instruction Follow activity as directed Keep your appointments as scheduled Take your immunizations and boosters as scheduled If your symptoms worsen call your PCP, if no PCP go to Urgent Care Center or Emergency Room Smoking is Dangerous to Your Health. Avoid second hand smoke Call the 24-hour hour crisis hotline for domestic abuse at Callie Luther Dec 22, 2017 10:04
[2017-12-22] MEDS: cefTRIAXone INJ 1,000 MG in SODIUM CHLORIDE 0.9% INJ 100 ML IV SCH (10:43)
[2017-12-22] MEDS ORDERED: HYDR-3288 PO (10:52)
[2017-12-22] MEDS ORDERED: LEVA250T14 PO (10:52)
--- NOTE | 2017-12-22 12:56 | HHI.DS ---
Discharge Summary Admission Date Dec 19, 2017 at 16:03 Discharge Date: Dec 22, 2017 Admitting Diagnosis Abdominal pain/pyelonephritis (1) Abdominal pain Diagnosis: Principal ICD Codes: R10.9 - Unspecified abdominal pain Status: Acute (2) Acute superficial gastritis without hemorrhage Diagnosis: Secondary ICD Codes: K29.00 - Acute gastritis without bleeding (3) Ovarian cyst Diagnosis: Secondary ICD Codes: N83.209 - Unspecified ovarian cyst, unspecified side (4) Gross hematuria Diagnosis: Secondary ICD Codes: R31.0 - Gross hematuria Consultants Dr. Don Tomlinson - Urology Dr. Piter Vasquez - GI Brief History 22-year-old relatively healthy female presents to the emergency department via private transportation for complaint of severe right flank pain with shortness of breath due to pain. Patient states that 12/05/17 she underwent elective discectomy and has done well postoperatively. Patient takes no prescription medications regularly. Her last pain pill from the Cspine surgery was over a week ago and her postop pain has been well controlled. Patient does not smoke cigarettes. Patient states last evening after eating dinner she started noticing some periumbilical pain which moved to her right upper quadrant and now causes her severe right flank pain with shortness of breath. She was able to get to sleep around 11 pm despite the pain, but awoke with more pain at 1 AM. She tried to "tough it out", but had to come to ER due to pain around 4 AM. She vomited 3-4x at home before coming to ER. No vomiting her. No trauma. No unusual activities. No report of chest pain or pleuritic chest pain. No report of hemoptysis. Patient is not taking any blood thinning agents. Patient rates pain as severe 9/10 initially, now down to 5/10 on my exam. CXR, GB us, CTA chest, CT abd/pelvis all negative for acute findings and labs OK except u/a abnormalities. Pt reports low grade fever last PM and this AM as well. CBC/BMP: 12/22/17 0809 12/22/17 0803 Significant Findings Laboratory Tests Test 12/19/17 18:27 12/21/17 03:20 12/21/17 17:43 12/22/17 08:03 Creatinine 0.48 MG/DL (0.50-1.00) Albumin 3.0 GM/DL (3.4-5.0) Calcium Level 8.3 MG/DL (8.5-10.1) 8.3 MG/DL (8.5-10.1) Chloride Level 108 MEQ/L (98-107) 109 MEQ/L (98-107) White Blood Count 2.0 TH/MM3 (4.0-11.0) Neutrophils (%) (Auto) 78.2 % (16.0-70.0) Neutrophils # (Auto) 1.5 TH/MM3 (1.8-7.7) Lymphocytes # (Auto) 0.4 TH/MM3 (1.0-4.8) Test 12/22/17 08:09 Red Blood Count 3.53 MIL/MM3 (4.00-5.30) Hemoglobin 11.0 GM/DL (11.6-15.3) Hematocrit 30.9 % (35.0-46.0) Monocytes (%) (Auto) 10.1 % (0.0-8.0) Imaging Last Impressions Renal Ultrasound 12/20/17 0000 Signed Impressions: Service Date/Time: November 08:46 - CONCLUSION: 1. The examination is within normal limits. Que Dallas MD Chest X-Ray 12/18/17 0501 Signed Impressions: Service Date/Time: Monday, December 18, 2017 05:08 - CONCLUSION: No acute disease. Monroe Mckeon MD Gall Bladder Ultrasound 12/18/17 0000 Signed Impressions: Service Date/Time: Monday, December 18, 2017 07:54 - CONCLUSION: 1. Unremarkable right upper quadrant ultrasound examination. Specifically, no cholelithiasis or sonographic evidence for cholecystitis. Caio Davies MD CT Angiography 12/18/17 0000 Signed Impressions: Service Date/Time: Monday, December 18, 2017 06:14 - CONCLUSION: Negative exam with no evidence of pulmonary embolism. Monroe Mckeon MD Abdomen/Pelvis CT 12/18/17 0000 Signed Impressions: Service Date/Time: Monday, December 18, 2017 06:14 - CONCLUSION: 1. Unremarkable gallbladder. 2. Moderate-sized left ovarian cyst. 3. Bowel gas pattern is within normal limits. Monroe Mckeon MD PE at Discharge General: NAD, AAOx3 Neck: surgical incision on the anterior right side of the neck is c/d/i Chest: CTA Cardiac: Regular Abd: +BS, soft ND, right sided abdominal and flank tenderness improving Ext: No edema Hospital Course Right sided Abd pain/flank pain Severe gastritis Hematuria Nausea/vomiting Constipation Pt is a 22 y/o female who presented to the [facility] [place] [facility] on 12/18/17 with complaints of right sided abd/flank pain and fever. GB US (12/18/17) --> Unremarkable right upper quadrant ultrasound examination. Specifically, no cholelithiasis or sonographic evidence for cholecystitis. CT Abd/pelvis (12/18/17) --> Unremarkable gallbladder. Moderate-sized left ovarian cyst. Bowel gas pattern is within normal limits. UA at admission was abnormal, urine culture growing E. coli. Pt was given IV fluids, pain control and IV antibiotics (Rocephin). Pt developed hematuria on 12/19 and continued N/V, fever and flank pain. There was concern for possible radiolucent stone presence. The case was discussed between Dr. Woods and Dr. Tomlinson and it was decided to transfer the pt to [facility] for possible cystoureteroscopy with possible stone retrieval. Renal US (12/20) - -> Negative. Pts last fever was on 12/19 @ 17:15. Repeat UA on 12/19 noted large amount of blood. Pt underwent cystoscopy, right retrograde pyelogram on 12/21 which was noted to be negative. There was no noted hematuria when the bladder was drained with cystoscopy and per discussion with Dr. Tomlinson, her ureter and bladder were totally normal. Rose catheter was placed post-procedurally and pt did not have any further any hematuria. The pts symptoms were discussed further in the PACU and she noted that the RUQ/Right flank pain is constant but she has noted it to be worse with food intake since admission. She continued to be nauseated but no vomiting yesterday or today. She revealed that she had been taking Ibuprofen 800mg 2-3 times per day for about 2-3 weeks due to her recent neck injury and surgery. She reports that she noted the vaginal bleeding started on 12/19 as well and is much heavier than it had been since her Implanon implant was placed. Its not clear if her hematuria could have been from contamination from vaginal bleeding or not. She also noted that she had some streak of blood in her stool early in the admission when she had a very hard BM. The case was discussed with her Yeast Fermentation Attendant, Dr. Dung Espino, and he visited with the pt and her family on 12/21 and he wants her to followup as an outpt for monitoring on her ovarian cyst. GI was consulted and pt underwent evaluation with EGD on 12/21/17 which noted severe antral gastritis, biopsy taken. Protonix increased to 40mg BID and Carafate added. Pt is feeling constipated on the day of discharge, cont. Colace BID and pt was given MOM. Discussed minimizing the pts pain medications and encouraged ambulation. Overall the pt is feeling better on 12/22 and wants to be discharged home. Discussed dietary modifications regarding her gastritis. Pt will continue on Protonix 40mg po BID and Carafate 1gram po BID Pt is to discontinue/avoid all NSAID use She will continue on Levaquin x 7 days Pt was given Zofran ODT PRN x 10 days and [place] 7.5/325mg PRN #20 Discussed constipation precautions and recommended stool softeners daily while using pain medications and laxatives PRN Pt is to followup with her PCP, Dr. Goss, next week She is to followup with Dr. Vasquez in 2 weeks to followup on pathology Pt is to followup with Dr. Nolasco in 2 weeks. Pt Condition on Discharge: Stable Discharge Disposition: Discharge Home Discharge Instructions DIET: Follow Instructions for: As Tolerated, No Restrictions, Gastroesophageal Reflux Activities you can perform: Regular-No Restrictions Follow up Referrals: Gastroenterology - 2 Weeks with Piter Vasquez MD LENDING CONSULTANT - 2 Weeks with Dung Nolasco MD PCP Follow-up - [address] Isidro Goss New Medications: Hydrocodone-Acetaminophen ([place]) 7.5-325 mg Tab 1 TAB PO Q6H PRN for PAIN, #20 TAB 0 Refills Levofloxacin (Levaquin) 250 Mg Tablet 250 MG PO DAILY for Infection for 7 Days, #7 TAB 0 Refills Ondansetron Odt (Zofran Odt) 8 Mg Tab 8 MG SL Q8H PRN for NAUSEA OR VOMITING for 10 Days, #30 TAB 0 Refills Pantoprazole (Protonix) 40 Mg Tab 40 MG PO BID for Reflux for 30 Days, #60 TAB 0 Refills Sucralfate (Carafate) 1 Gram Tab 1 GM PO BIDAC for Ulcer Prevention, #60 TAB 0 Refills On empty stomach Discontinued Medications: Cyclobenzaprine (Flexeril) 10 Mg Tab 10 MG PO TID for Muscle Spasm, #90 TAB 0 Refills Ibuprofen (Ibuprofen) 800 Mg Tab 800 MG PO Q6HR PRN for PAIN, #40 TAB 0 Refills Oxycodone-Acetaminophen (Percocet) 5-325 mg Tab 2 TAB PO Q8HR PRN for PAIN, #60 TAB 0 Refills Callie Luther Dec 22, 2017 12:56 Ludwig Swan MD Dec 22, 2017 13:14
[2017-12-23] MEDS ORDERED: MAGNESIUM HYDROXIDE SUSP 30 ML CUP PO PRN (09:00)
== END 2017-12-22 11:05 | disposition home or self-care (01) | DRG 392 ==
LOC: PHED 04:39 → PHEDA 09:01 → PH3A 10:07 → OBSVTOIN 12-19 16:03 → N07A 12-19 19:01
PROVIDERS: ADMIT Hospitalist; ATTEND Hospitalist
PROC: BT1D1ZZ Fluoroscopy of Right Kidney, Ureter and Bladder using Low Osmolar Contrast (ICD-10-PCS; 2017-12-21)
PROC: 0T9B70Z Drainage of Bladder with Drainage Device, Via Natural or Artificial Opening (ICD-10-PCS; 2017-12-21)
PROC: 0DB68ZX Excision of Stomach, Via Natural or Artificial Opening Endoscopic, Diagnostic (ICD-10-PCS; 2017-12-21)
PROC: 0TJB8ZZ Inspection of Bladder, Via Natural or Artificial Opening Endoscopic (ICD-10-PCS; principal; 2017-12-21 09:59)
DX: K29.00 Acute gastritis without bleeding (principal); J44.9 Chronic obstructive pulmonary disease, unspecified; N83.202 Unspecified ovarian cyst, left side; Z80.3 Family history of malignant neoplasm of breast; R31.0 Gross hematuria; Z91.81 History of falling; K59.03 Drug induced constipation; N93.9 Abnormal uterine and vaginal bleeding, unspecified
CPT/HCPCS: 71045; 71275; 74177; 74420; 76705; 76775; 80048; 80053; 80076; 81001; 82550; 83605; 83690; 83735; 84703; 85025; 85610; 85730; 87040; 87077; 87086; 87186; 87491; 87591; 88305; 88312; 93005; 96361; 96365; 96366; 96367; 96375; 96376; C1769; C9113; G0378; J0696; J1100; J1170; J1200; J1885; J2060; J2250; J2270; J2405; J2543; J3010; J3480; J7030; Q9967